=== PATIENT | female | born 1945 | race Caucasian/White ===

== ENCOUNTER → 2020-09-08 09:53 | Outpatient (BNVA) | payer MEDICARE, BC, SELFPAY | PROVIDERS: PCP Internal Medicine; Visit Provider Internal Medicine Gastroenterology | DX: R19.7 Diarrhea, unspecified (principal) | CPT/HCPCS: Q3014 ==

== ENCOUNTER 2020-09-14 15:46 | Outpatient (REF) | payer MEDICARE, SELFPAY ==
[2020-09-20 08:32] LABS: Fecal Fat Qualitative Normal (Normal)
[2020-09-21 17:52] LABS: Pancreatic Elastase-1 >500 mcg/g
== END 2020-09-14 15:47 | disposition home or self-care (01) ==
LOC: HO.LNP 15:46
PROVIDERS: Visit Provider Internal Medicine Gastroenterology
DX: R19.7 Diarrhea, unspecified (principal)
CPT/HCPCS: 82656; 82705; 87329

== ENCOUNTER → 2021-03-12 14:18 | Outpatient (BNVA) | payer MEDICARE, BC, SELFPAY | PROVIDERS: PCP Internal Medicine; Visit Provider Internal Medicine Gastroenterology | DX: Z13.89 Encounter for screening for other disorder (principal) | CPT/HCPCS: Q3014 ==

== ENCOUNTER 2023-02-03 14:59 | Outpatient (AMB) | payer BC, SELFPAY ==
--- NOTE | 2023-02-03 15:12 | MHC.OFFVIS ---
Intake Vital Signs 02/03/23 15:14 Height 5 ft 3 in Weight 220 lb BMI 39.0 BP 110/55 L Blood Pressure Location Lt brachial Position Sitting Pulse 69 Intake Visit Reasons: 6 month follow up Intake Note: Juliane presents in the office as a 6 month follow up. CC: Stomach ache today that comes and goes if she eats eats. Intellectual Property Counsel Required: No Allergies Milk Containing Products (Dairy) [Milk Containing Products] Allergy (Mild, Verified 02/03/23 15:15) Unknown wheat Allergy (Mild, Verified 02/03/23 15:15) Unknown aspirin Allergy (Unknown, Verified 02/03/23 15:15) Unknown caffeine Allergy (Unknown, Verified 02/03/23 15:15) unknown clarithromycin [Prevpac] Allergy (Unknown, Verified 02/03/23 15:15) unknown lansoprazole [Prevpac] Allergy (Unknown, Verified 02/03/23 15:15) unknown sertraline Allergy (Unknown, Verified 02/03/23 15:15) unknown HPI 6 month follow up HPI Details 77 y/o f w/ hx of hypothyroidism, depression, here?for f/u RECAP: ?Had admission w/ severe gastroenteritis and dehydration 09/2018, now much better ? her appetite is good ? she takes famotidine which helps her GERD ? 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 I refered her to immunology due to low IgM levels, also being cheked for allergies ? she was c/o loose to soft stools, sometimes hard to go ? she takes colestipol twice daily, given that due to bile acid gastritis which helps ? nausea is present, ? she has morning cramps in mid, lower abdo, usually relieved by passing stool sometimes 3 times in the morning ? she had ongoing social issues w/ daughter she was on chronic low dose amxoil for igM def, no approval from insurance company for IgM ? ? Colonoscopy 2016--hyperplastic polyp panc elastase--nml giardia nml ?? INTERIM: She has been well she is happy with colestipol appetite is too good ? weight is stable but trying to lose actively no blood in stool. she only needs zofran very rarely EXAM: GENERAL: The patient is well developed and nontoxic. VITAL SIGNS:see workflow HEENT: Nonicteric sclerae, PERRLA, EOMI. Oropharynx clear. Moist mucous membranes. Conjunctivae appear well perfused. No thyroid mass. CHEST: Chest wall is nontender. HEART: Regular rate and rhythm without murmurs. LUNGS: Clear to auscultation bilaterally. ABDOMEN: Soft, positive bowel sounds, nontender, no organomegaly.no flank tenderness SKIN: No rash, no excessive bruising, petechiae, or purpura. NEUROLOGIC: Cranial nerves II-XII intact without motor/sensory deficit. ? 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 2/ IgM defc PLAN: 1/ cont with colestipol, no major SE with it, will refill 2/ colonoscopy 2025 for screening 3/ get labs from PCP--had done and were normal per her apart from borderline GFR at 59 PFSH Surgical History H/O colonoscopy History of carpal tunnel surgery History of esophagogastroduodenoscopy (EGD) Hx of cholecystectomy Family History Daughter Diabetes HTN (hypertension) Mother Diabetes Cancer, face Father Cancer, face Social History Household Members: Children Alcohol intake: current Alcohol intake frequency: does not drink Physical Exam Vital Signs: Last Vital Signs Pulse 69 02/03/23 15:14 BP 110/55 L 02/03/23 15:14 BMI result Body Mass Index 39.0 Assessment & Plan Assessment & Plan (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
[2023-02-03 15:14] VITALS: BP 110/55; PULSE 69; BMI 39.0
== END 2023-02-03 15:41 | disposition home or self-care (01) ==
PROVIDERS: PCP Internal Medicine; Visit Provider Internal Medicine Gastroenterology
DX: K90.89 Other intestinal malabsorption (principal); R19.7 Diarrhea, unspecified
CPT/HCPCS: 99213

== ENCOUNTER → 2023-02-03 14:59 | Outpatient (BNVA) | payer BC, SELFPAY | PROVIDERS: PCP Internal Medicine; Visit Provider Internal Medicine Gastroenterology ==

== ENCOUNTER 2024-05-03 15:07 | Outpatient (AMB) | payer BC, SELFPAY ==
--- NOTE | 2024-05-03 15:09 | MHC.OFFVIS ---
Vital Signs 05/03/24 15:10 Height 5 ft 2 in Weight 222 lb 10.67 oz BMI 40.7 BP 114/59 L Blood Pressure Location Lt brachial Position Sitting Pulse 68 Intake Visit Reasons: 1 year follow up Intake Note: Juliane presents in the office as a 1 year follow up. CC: States that she gets a pinch in her epigastric region and reflux at times. [employer] Service Technician Required: No Allergies Milk Containing Products (Dairy) [Milk Containing Products] Allergy (Mild, Verified 05/03/24 15:11) Unknown wheat Allergy (Mild, Verified 05/03/24 15:11) Unknown aspirin Allergy (Unknown, Verified 05/03/24 15:11) Unknown caffeine Allergy (Unknown, Verified 05/03/24 15:11) unknown clarithromycin [Prevpac] Allergy (Unknown, Verified 05/03/24 15:11) unknown lansoprazole [Prevpac] Allergy (Unknown, Verified 05/03/24 15:11) unknown sertraline Allergy (Unknown, Verified 05/03/24 15:11) unknown HPI HPI 1 year follow up: Details: 78 y/o f w/ hx of hypothyroidism, depression, here for f/u RECAP: Had admission w/ severe gastroenteritis and dehydration 09/2018, now much better her appetite is good she takes famotidine which helps her GERD lorie also has lactose intolerance, 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, for which she takes and was helping before her gastroenteritis I refered her to immunology due to low IgM levels, also being cheked for allergies she was c/o loose to soft stools, sometimes hard to go she takes colestipol twice daily, given that due to bile acid gastritis which helps nausea is present, she has morning cramps in mid, lower abdo, usually relieved by passing stool sometimes 3 times in the morning she had ongoing social issues w/ daughter she was on chronic low dose amxoil for igM def, no approval from insurance company for IgM Colonoscopy 2015--hyperplastic polyp panc elastase--nml giardia nml INTERIM: she has periodic abdominal pain with gluten, avoiding it she is happy with colestipol as it still works well occ has a pinching sensation sometimes when eats, relieved by passing gas and anta acid son aged 55 earlier this year - ?[place], also her 2 best friends EXAM: GENERAL: The patient is well developed and nontoxic. VITAL SIGNS:see workflow HEENT: Nonicteric sclerae, PERRLA, EOMI. Oropharynx clear. Moist mucous membranes. Conjunctivae appear well perfused. No thyroid mass. CHEST: Chest wall is nontender. HEART: Regular rate and rhythm without murmurs. LUNGS: Clear to auscultation bilaterally. ABDOMEN: Soft, positive bowel sounds, nontender, no organomegaly.no flank tenderness SKIN: No rash, no excessive bruising, petechiae, or purpura. NEUROLOGIC: Cranial nerves II-XII intact without motor/sensory deficit. 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 3/ bloating and gluten intolerance PLAN: 1/ cont with colestipol, no major SE with it, will refill 2/ colonoscopy 2025 for screening 3/ get labs from PCP--refer renal for her CKD per her request 4/ trial of rifaximin and cont with probiotic PFSH Surgical History History of esophagogastroduodenoscopy (EGD) H/O colonoscopy Hx of cholecystectomy History of carpal tunnel surgery Family History Daughter Diabetes HTN (hypertension) Mother Diabetes Cancer, face Father Cancer, face Social History Household Members: Children Alcohol intake: current Alcohol intake frequency: does not drink Physical Exam Vital Signs: Last Vital Signs Pulse 68 05/03/24 15:10 BP 114/59 L 05/03/24 15:10 BMI result Body Mass Index 40.7 Assessment & Plan Assessment & Plan (1) CKD (chronic kidney disease): Code(s): N18.9 - Chronic kidney disease, unspecified Category: Medical Plan: see above Orders: Referrals Nephrology Referral N18.9 - Chronic kidney disease, unspecified Medications: New rifaximin 550 mg PO TID 2 weeks 42 tabs 0RF Coding Level of Care Code Est Pt Level 4 (53442) Diagnoses CKD (chronic kidney disease) N18.9
[2024-05-03 15:10] VITALS: BP 114/59; PULSE 68; BMI 40.7
== END 2024-05-03 15:34 | disposition home or self-care (01) ==
PROVIDERS: PCP Internal Medicine; Visit Provider Internal Medicine Gastroenterology
DX: N18.9 Chronic kidney disease, unspecified (principal)
CPT/HCPCS: 99214

== ENCOUNTER → 2024-05-03 15:07 | Outpatient (BNVA) | payer BC, SELFPAY | PROVIDERS: PCP Internal Medicine; Visit Provider Internal Medicine Gastroenterology ==

== ENCOUNTER 2024-06-17 14:39 | Outpatient (AMB) | payer BC, SELFPAY ==
--- NOTE | 2024-06-17 14:46 | HO.NEPHOV_ITS ---
Vital Signs 06/17/24 14:51 Height 5 ft 2 in Weight 228 lb 6 oz BMI 41.8 BP 108/68 Blood Pressure Location Lt brachial Position Sitting Pulse 72 Pulse Source Pulse Oximeter Pulse Oximetry (%) 95 Oxygen Delivery Method Room Air Intake Visit Reasons: INP: CKD-LVM Dynamite Packing Machine Feeder Required: No Accompanied by: Self / Same As Patient Allergies Milk Containing Products (Dairy) [Milk Containing Products] Allergy (Mild, Verified 06/17/24 14:51) Unknown wheat Allergy (Mild, Verified 06/17/24 14:51) Unknown aspirin Allergy (Unknown, Verified 06/17/24 14:51) Unknown caffeine Allergy (Unknown, Verified 06/17/24 14:51) unknown clarithromycin [Prevpac] Allergy (Unknown, Verified 06/17/24 14:51) unknown lansoprazole [Prevpac] Allergy (Unknown, Verified 06/17/24 14:51) unknown sertraline Allergy (Unknown, Verified 06/17/24 14:51) unknown HPI Comments Details: I had the privilege of seeing Juliane in consultation for low GFR. She is 79 years of age and has been in good health. She is not a diabetic or hypertensive. She takes Atenolol for palpitations. She has no history of proteinuria, retinopathy or LVH. She does not take nonsteroidal anti-inflammatories or PPI . She does not have any nausea, vomiting, diarrhea, shortness of breath, proximal nocturnal dyspnea, orthopnea, pedal edema, hematuria, renal stones, coronary artery disease, congestive heart failure, carotid stenosis, peripheral arterial disease, renal artery stenosis, new bone or back pain. She never had any history of high serum calcium. She denies any history of hepatitis or HIV. She does not get any recurrent sore throat, epistaxis, hemoptysis, photosensitivity, skin rashes. She has no sensorineural hearing deficits or microscopic hematuria. She has no acral tingling or paresthesia. She has masters significant weight over time. There were no new specific complaints at the time of this office visit [facility] Surgical History History of esophagogastroduodenoscopy (EGD) H/O colonoscopy Hx of cholecystectomy History of carpal tunnel surgery Family History Daughter Diabetes HTN (hypertension) Mother Diabetes Cancer, face Father Cancer, face Social History Household Members: Children Alcohol intake: current Alcohol intake frequency: does not drink Review of Systems Const All systems reviewed & are unremarkable except as noted in HPI and below Physical Exam Vital Signs: Last Vital Signs Pulse 72 06/17/24 14:51 BP 108/68 06/17/24 14:51 Pulse Ox 95 06/17/24 14:51 Oxygen Delivery Method Room Air 06/17/24 14:51 BMI result Body Mass Index 41.8 Const General: comfortable and no acute distress Orientation/consciousness: patient oriented x3 HEENT Head: Yes normocephalic Mouth: Normal oral and palatal mucosa present Eyes EOM: EOMs intact bilaterally Neck Neck: Yes supple Resp Auscultation: clear to auscultation bilaterally Cardio Jugular venous distension: no JVD Rate: regular rate GI Palpation (GI): Soft to palpation Auscultation: normal bowel sounds General: Yes no CVA tenderness Back/Spine/Pelvis Back: no CVA tenderness Skin General skin exam: no rashes or lesions noted Neuro General: patient oriented x3 and moves all extremities Extrem General: Yes no pedal edema Results Reviewed Nephrology Results: No Data to Display Assessment & Plan Assessment & Plan (1) CKD (chronic kidney disease) stage 2, GFR 60-89 ml/min: Code(s): N18.2 - Chronic kidney disease, stage 2 (mild) Category: Medical Plan Juliane has been mild rise in serum creatinine with mild drop in GFR over time due to unknown reason. Whether she had an ROSIBEL in the past with resultant drop in GFR need to be ascertained. I have ordered extensive workup including blood work and urine studies including cr cl as well as renal ultrasound. If she has lower GFR and a definite etiology has not been detected, she may need a renal biopsy. She avoids nonsteroidal anti-inflammatories and maintain good hydration which I encouraged. I did not make any medication changes today. All these possibilities have been discussed in detail and I answered all her questions. Follow-up appointment given Orders: Orders Anti DNA DS Antibody 4 Weeks N18.2 - Chronic kidney disease, stage 2 (mild) Proteinase 3 PR3 Antibodies 4 Weeks N18.2 - Chronic kidney disease, stage 2 (mild) Complement C4 4 Weeks N18.2 - Chronic kidney disease, stage 2 (mild) Phospholipase A2 Receptor Pnl 4 Weeks N18.2 - Chronic kidney disease, stage 2 (mild) Creatinine 4 Weeks N18.2 - Chronic kidney disease, stage 2 (mild) Creatinine Clearance Urine 24U 4 Weeks N18.2 - Chronic kidney disease, stage 2 (mild) Myeloperoxidase Antibody 4 Weeks N18.2 - Chronic kidney disease, stage 2 (mild) Anti Glomerular Basement Memb 4 Weeks N18.2 - Chronic kidney disease, stage 2 (mild) Complement C3 4 Weeks N18.2 - Chronic kidney disease, stage 2 (mild) Immunofixation Pnl, Serum 4 Weeks N18.2 - Chronic kidney disease, stage 2 (mild) Blood Urea Nitrogen 4 Weeks N18.2 - Chronic kidney disease, stage 2 (mild) Electrolytes 4 Weeks N18.2 - Chronic kidney disease, stage 2 (mild) Protein Creatinine Ratio, Ur 4 Weeks N18.2 - Chronic kidney disease, stage 2 (mild) US renal BI 4 Weeks N18.2 - Chronic kidney disease, stage 2 (mild) UA and rflx microscopic 4 Weeks N18.2 - Chronic kidney disease, stage 2 (mild) Coding Level of Care Code New Pt Level 4 (19472) Diagnoses CKD (chronic kidney disease) stage 2, GFR 60-89 ml/min N18.2
[2024-06-17 14:51] VITALS: BP 108/68; PULSE 72; O2SAT 95; BMI 41.8
== END 2024-06-17 15:28 | disposition home or self-care (01) ==
PROVIDERS: PCP Internal Medicine; Referring Provider Internal Medicine Gastroenterology; Visit Provider Internal Medicine Nephrology
DX: N18.2 Chronic kidney disease, stage 2 (mild) (principal)
CPT/HCPCS: 99204

== ENCOUNTER 2024-06-23 14:32 | Outpatient (REF) | payer MEDICARE, SELFPAY ==
[2024-06-23 16:02] LABS: Anion Gap 12 (12-20); Blood Urea Nitrogen 17 mg/dL (9-16); Carbon Dioxide 23 mmol/L (22-29); Chloride 108 mmol/L (96-108); Estimated Glomerular Filt Rate 57; Potassium 4.1 mmol/L (3.3-5.1); Sodium 139 mmol/L (135-145)
[2024-06-23 16:26] LABS: Creatinine, mg/dL 80.09
[2024-06-23 17:06] LABS: Creatinine, 24Hr Urine 1.7 G/Day (1.0-2.0); Total Volume 24 Hour Urine 2100 mL
[2024-06-23 17:07] LABS: Creatinine (CrCl) 0.94 mg/dL (0.5-1.4); Creatinine Clearance 124.2 mL/min (85-125)
[2024-06-25 11:24] LABS: Complement C3 145 mg/dL (83-193)
[2024-06-28 15:54] LABS: IgA 350 mg/dL (70-320); IgG 1138 mg/dL (600-1540); IgM 21 mg/dL (50-300)
[2024-06-28 16:38] LABS: Anti DNA DS Antibody 11 IU/mL; Anti Glomerular Basement Memb <1.0 AI; Myeloperoxidase Antibody <1.0 AI; Proteinase 3 PR3 Antibodies <1.0 AI
[2024-06-30 16:23] LABS: Phospholipase A2 IgG ELISA <4 RU/mL; Phospholipase A2 IgG IFA NEGATIVE (NEGATIVE)
== END 2024-06-23 14:33 | disposition home or self-care (01) ==
LOC: HO.LAB 14:32
PROVIDERS: PCP Student in an Organized Health Care Education/Training Program; Visit Provider Internal Medicine Nephrology
DX: N18.2 Chronic kidney disease, stage 2 (mild) (principal)
CPT/HCPCS: 36415; 80051; 82565; 82575; 82784; 83520; 84520; 86021; 86160; 86225; 86255; 86334

== ENCOUNTER 2024-06-24 16:12 | Outpatient (REF) | payer MEDICARE, SELFPAY ==
--- NOTE | ~2024-06-24 | US_ITS ---
CLINICAL HISTORY: N18.2 - Chronic kidney disease, stage 2 (mild) Renal ultrasound Comparison: None Findings: The kidneys are normal in echotexture bilaterally. The liver is increased in echogenicity which may indicate hepatic steatosis. No hydronephrosis. The right kidney is normal in size, measuring 10.4cm in length. The left kidney is normal in size, measuring 12.0cm in length. Impression: Unremarkable kidneys. This document has been electronically signed by: Korin Giron MD on 06/24/2024 16:59:54
== END 2024-06-24 16:13 | disposition home or self-care (01) ==
LOC: HO.US 16:12
PROVIDERS: Visit Provider Internal Medicine Nephrology
DX: N18.2 Chronic kidney disease, stage 2 (mild) (principal)
CPT/HCPCS: 76775

== ENCOUNTER → 2024-06-24 16:14 | Outpatient (BNV) | payer MEDICARE, SELFPAY | PROVIDERS: Visit Provider Radiology Diagnostic Radiology | DX: N18.2 Chronic kidney disease, stage 2 (mild) (principal) | CPT/HCPCS: 76775 ==

== ENCOUNTER 2024-07-29 15:01 | Outpatient (REF) | payer MEDICARE, SELFPAY ==
--- OUTSIDE RECORDS SUMMARY | 2024-07-29 15:36 | XMS_ITS | Clinical Summary ---
Author Organization [facility] Address [address] [place] [address] Care Team Providers Care Hardboard Press Operator Name Role Phone Madeline Majano MD Primary Care Provider [phone] Allergies Active Allergy Reactions Criticality Noted Date [...] Date Site/Laterality Comments CARPAL TUNNEL RELEASE PROCEDURE: AR NEUROPLASTY &/TRANSPOS MEDIAN NRV CARPAL TUNNE; COMMENT: Kj everett OTHER SURGICAL HISTORY 03/20 PROCEDURE: MAMMOGRAM; COMMENT: neg TONSILLECTOMY ADENOIDECTOMY, BILATERAL MYRINGOTOMY AND TUBES PROCEDURE: AR TONSILLECTOMY & ADENOIDECTOMY <AGE 12 CARDIOVASCULAR STRESS TEST 09/17 PROCEDURE: AR CV STRS TST XERS&/OR RX CONT ECG W/O I&R; COMMENT: neg ESOPHAGOGASTRODUODENOSCOPY 12/02/07 PROCEDURE: AR EGD TRANSORAL BIOPSY SINGLE/MULTIPLE; COMMENT: Moderate antral gastritis-bx:Chronic gastritis with lymphoid nodules, esophagus nl, stomach nl. CHOLECYSTECTOMY 06/22 PROCEDURE: HISTORICAL CHOLECYSTECTOMY; COMMENT: [place] COLONOSCOPY 02/15 PROCEDURE: AR COLONOSCOPY STOMA DX INCLUDING COLLJ SPEC SPX; COMMENT: Mumtaz FELDER; int hem COLONOSCOPY 08/10/12 PROCEDURE: AR COLONOSCOPY STOMA W/RMVL ISSAC POLYP/OTH LES SNARE; COMMENT: adenoma; repeat in 3 yrs COLONOSCOPY W/ BIOPSIES 08/10/15 [facility] PROCEDURE: AR COLONOSCOPY W/BIOPSY SINGLE/MULTIPLE; COMMENT: hyperplastic polyp, tics and hemorrhoids; repeat in 5 yrs CHOLECYSTECTOMY PROCEDURE: AR LAPAROSCOPY SURG CHOLECYSTECTOMY Medical History Medical History [...] AM EDT Office Visit Internal Medicine - [address] [place] [phone] Madeline Majano MD [address] [place] [id number] 04/04/2025 3:30 PM EDT Appointment Radiology Department - [address] [phone] Health Maintenance Due Date Last Done Comments [...] Results * Falls Risk Assessment (01/21/2024) Pathologist [facility] Falls Risk Assessment Abstracted Historical Provider HEALTH MAINTENANCE Final Result * Depression Screening (01/21/2024) Pathologist [facility] Depression Screening Abstracted [facility] Provider HEALTH MAINTENANCE Final Result * (ABNORMAL) Lipid panel (01/21/2024) [facility] LDL/HDL Ratio 3 0 - 4 Triglycerides 167(A) 0 - 150 mg/dL Cholesterol 156 0 - 200 mg/dL HDL 61 >=40 mg/dL LDL Cholesterol 62 0 - 100 mg/dL Blood Venous blood specimen / Unknown [facility] Provider LAB BLOOD ORDERABLES Violette l [...] classified as having normal bone density. The [facility] Department of Internal Medicine recommends [...] beclassified as having normal bone density. The [facility] Department of Internal Medicine recommendsusing [...] Resul t * Hepatitis C Screening (05/01/2016) [facility] Hepatitis C Screening Abstracted [facility] Provider HEALTH MAINTENANCE Final Result * Colonoscopy (08/10/2015) [facility] Colonoscopy No interpreta tion,abstr acted Anatomical Region Laterality Modality Other Historical Provider HEALTH MAINTENANCE Final Result from Last 3 Months or Most Recently Relevant to Health Maintenance Care Teams Hardboard Press Operator Relationship Specialty Start Date End Date Madeline Majano MD [address] [place] [address] PCP - General 05/28/22
== END 2024-07-29 15:02 | disposition home or self-care (01) ==
LOC: HO.HKASLDS 15:01
PROVIDERS: Visit Provider Internal Medicine Nephrology
DX: I10 Essential (primary) hypertension (principal)
CPT/HCPCS: 99212

== ENCOUNTER 2024-07-29 15:01 | Outpatient (AMB) | payer MEDICARE, SELFPAY ==
--- NOTE | 2024-07-29 15:04 | HO.NEPHOV_ITS ---
Vital Signs 07/29/24 15:05 Height 5 ft 2 in Weight 227 lb 4 oz BMI 41.6 BP 110/60 Blood Pressure Location Lt brachial Position Sitting Pulse 76 Pulse Source Pulse Oximeter Pulse Oximetry (%) 96 Oxygen Delivery Method Room Air Intake Visit Reasons: 6 wks f/u/ Conf Auto Transmission Specialist Required: No Accompanied by: Self / Same As Patient Allergies Milk Containing Products (Dairy) [Milk Containing Products] Allergy (Mild, Verified 07/29/24 15:04) Unknown wheat Allergy (Mild, Verified 07/29/24 15:04) Unknown aspirin Allergy (Unknown, Verified 07/29/24 15:04) Unknown caffeine Allergy (Unknown, Verified 07/29/24 15:) unknown clarithromycin [Prevpac] Allergy (Unknown, Verified 07/29/24:) unknown lansoprazole [Prevpac] Allergy (Unknown, Verified 07/29/24 15:) unknown sertraline Allergy (Unknown, Verified 07/29/24 15:) unknown HPI Comments Details: Juliane was seen for questionable low GFR. She is 79 years of age and has been in good health. She is not a diabetic or hypertensive. She takes Atenolol for palpitations. She has no history of proteinuria, retinopathy or LVH. She does not take nonsteroidal anti-inflammatories or PPI . She does not have any nausea, vomiting, diarrhea, shortness of breath, proximal nocturnal dyspnea, orthopnea, pedal edema, hematuria, renal stones, coronary artery disease, congestive heart failure, carotid stenosis, peripheral arterial disease, renal artery stenosis, new bone or back pain. She never had any history of high serum calcium. She denies any history of hepatitis or HIV. She does not get any recurrent sore throat, epistaxis, hemoptysis, photosensitivity, skin rashes. She has no sensorineural hearing deficits or microscopic hematuria. She has no acral tingling or paresthesia. There were no new specific complaints at the time of this office visit [facility] Surgical History History of esophagogastroduodenoscopy (EGD) H/O colonoscopy Hx of cholecystectomy History of carpal tunnel surgery Family History Daughter Diabetes HTN (hypertension) Mother Diabetes Cancer, face Father Cancer, face Social History Household Members: Children Alcohol intake: current Alcohol intake frequency: does not drink Review of Systems Const All systems reviewed & are unremarkable except as noted in HPI and below Physical Exam Vital Signs: Last Vital Signs Pulse 76 07/29/24 15:05 BP 110/60 07/29/24 15:05 Pulse Ox 96 07/29/24 15:05 Oxygen Delivery Method Room Air 07/29/24 15:05 BMI result Body Mass Index 41.6 Const General: comfortable and no acute distress Orientation/consciousness: patient oriented x3 HEENT Head: Yes normocephalic Mouth: Normal oral and palatal mucosa present Eyes EOM: EOMs intact bilaterally Neck Neck: Yes supple Resp Auscultation: clear to auscultation bilaterally Cardio Jugular venous distension: no JVD Rate: regular rate GI Palpation (GI): Soft to palpation Auscultation: normal bowel sounds General: Yes no CVA tenderness Back/Spine/Pelvis Back: no CVA tenderness Skin General skin exam: no rashes or lesions noted Neuro General: patient oriented x3 and moves all extremities Extrem General: Yes no pedal edema Results Reviewed Nephrology Results: Sodium 139 mmol/L (135-145) 06/23/24 Potassium 4.1 mmol/L (3.3-5.1) 06/23/24 Chloride 108 mmol/L (96-108) 06/23/24 Carbon Dioxide 23 mmol/L (22-29) 06/23/24 BUN 17 mg/dL (9-16) H 06/23/24 Creatinine 0.94 mg/dL (0.5-1.4) 06/23/24 Renal US 06/24/24 Assessment & Plan Assessment & Plan (1) Hypertension: Code(s): I10 - Essential (primary) hypertension Category: Medical Qualifiers: Hypertension type: primary hypertension Qualified Code(s): I10 - Essential (primary) hypertension Plan Juliane has been mild rise in serum creatinine with mild drop in GFR over time due to unknown reason. Whether she had an ROSIBEL in the past with resultant drop in GFR need to be ascertained. Extensive workup including blood work and urine studies was negative. Her cr cl as well as renal ultrasound are normal. she does not need a renal biopsy now. She avoids nonsteroidal anti-inflammatories and maintain good hydration which I encouraged. I did not make any medication changes today. All these possibilities have been discussed in detail and I answered all her questions. Follow-up appointment given Orders: Orders Creatinine Clearance Urine 24U 1 Year I10 - Essential (primary) hypertension Creatinine 1 Year I10 - Essential (primary) hypertension Electrolytes 1 Year I10 - Essential (primary) hypertension Blood Urea Nitrogen 1 Year I10 - Essential (primary) hypertension Coding Level of Care Code Est Pt Level 4 (41382) Diagnoses Primary hypertension I10 Hypertension type: primary hypertension
[2024-07-29 15:05] VITALS: BP 110/60; PULSE 76; O2SAT 96; BMI 41.6
--- OUTSIDE RECORDS SUMMARY | 2024-07-29 15:06 | XMS_ITS | Encounter Summary ---
Author Organization [facility] Address [address] [place] [address] Care Team Providers Care Chemical Tank Worker Name Role Phone Neida Waite MD Primary Care Provider U Kenneth Chandra MD Unavailable [phone] Sis Matta PA-C Unavailable Unavailab Madeline Hubbard MD Primary Care Provider [phone] Encounter Details Date Type Department Care Team Description 10/27/2020 Pt. Non Urgent Medical Question Adult Medicine B - [address] [place] [address] Neida Waite MD GERD (gastroesophageal reflux disease) Social History Tobacco Use Types Packs/Day Years Used Date Smoking Tobacco: Never Smokeless Tobacco: Never Comments:TERRIE STATES SHE WAS NEVER A SMOKER Alcohol Use Standard Drinks/Week Comments Yes 0 (1 standard drink = 0.6 oz pur e alcohol) rare Alcohol Habits Answer Date Recorded How often do you have a drink containing alcohol ? Never 11/21/2021 How many drinks containing a lcohol do you have on a typical day when you are drinking? Not asked How often do you have six or more drinks on one occasion? Never 11/21/2021 Social Isolation Answer Date Recorded In a typical week, how many times do you talk on the phone with family, friends, or neighbors? More than three times a week 11/21/2021 How often do you get togethe r with friends or relatives? Three times a week 11/21/2021 How often do you attend chur ch or alevism services? More than 4 times per year 11/21/2021 Do you belong to any clubs o r organizations such as mosque groups, unions, fraternal or athletic groups, or school groups? Yes 11/21/2021 How often do you attend meet ings of the clubs or organizations you belong to? More than 4 times per year 11/21/2021 Are you now , , , , never or living with a partner? 11/21/2021 Physical Activity Answer Date Recorded On average, how many days pe r week do you engage in moderate to strenuous exercise (like walking fast, running, jogging, dancing, swimming, biking, or other activities that cause a light or heavy sweat)? 7 days 11/21/2021 On average, how many minutes do you engage in exercise at this level? 30 min 11/21/2021 Stress Answer Date Recorded Do you feel stress - tense, restless, nervous, or anxious, or unable to sleep at night because your mind is troubled all the time - these days? Rather much 11/21/2021 Financial Resource Strain Answer Date R ecorded How hard is it for you to pa y for the very basics like food, housing, medical care, and heating? Not hard at all 11/21/2021 Intimate Partner Violence Answer Date R ecorded Within the last year, have y ou been afraid of your partner or ex-partner? No 11/21/2021 Within the last year, have y ou been humiliated or emotionally abused in other ways by your partner or ex-partner? No Within the last year, have y ou been kicked, hit, slapped, or otherwise physically hurt by your partner or ex-partner? No 11/21/2021 Within the last year, have y ou been raped or forced to have any kind of sexual activity by your partner or ex-partner? No 11/21/2021 Food Insecurity Answer Date Recorded Within the past 12 months, y ou worried that your food would run out before you got money to buy more. Never true 11/21/2021 Within the past 12 months, t he food you bought just didn't last and you didn't have money to get more. Never true 11/21/2021 Transportation Needs Answer Date Record ed In the past 12 months, has l ack of transportation kept you from medical appointments or from getting medications? No 01/2022 In the past 12 months, has l ack of transportation kept you from meetings, work, or getting things needed for daily living? No 11/21/2021 Housing Stability Answer Date Recorded In the last 12 months, was t here a time when you were not able to pay the mortgage or rent on time? No 11/21/2021 In the last 12 months, how many places have you lived? 1 11/21/2021 In the last 12 months, was t here a time when you did not have a steady place to sleep or slept in a senior care (including now)? No 11/21/2021 Sex Assigned at Date Recorded Not on file Job Start Date Occupation Industry Not on file Not on file Not on file documented as of this encounter Miscellaneous Notes * Telephone Encounter - Miriam Coyne PA-C - 10/27/2020 5:06 PM EDT Approved * Telephone Encounter - Lauren Miller M.A. - 10/27/2020 4:18 PM EDTFrom: Terrie David To: Gabrielle Ulloa Sent: 10/27/2020 4:11 PM EDT Subject: Correct address for prescriptions..[facility]!! This message is for the entire office..I have [facility] since June 16, 2020....NOT [facility]!!! PLEASE DO NOT SEND ANY REFULLS TO [facility]...I HAVE [facility].....I don't know why your meds dept. Has switched me back to [facility] [facility]..I am NO LONGER COVERED BY [facility]. THANK YOU!!!PLEASE SEND ALL FUTURE PRESCRIPTIONS TO [facility] ONLY!! documented in this encounter Plan of Treatment Not on file documented as of this encounter Visit Diagnoses Diagnosis GERD (gastroesophageal reflux disease) Esophageal reflux documented in this encounter Care Teams Chemical Tank Worker Relationship Specialty Start Date End Date Neida Waite MD PCP - General Internal Medicine 03/18/1705/16 Madeline Majano MD [address] [place] [address] PCP - General Internal Medicine 05/28/22 Kenneth Pickett MD [address] [place] [address] Specialist Cardiovascular Disease 09/02/20 Sis Matta PA-C [address] [place] [address] Cardiology 09/02/20 documented as of this encounter
--- OUTSIDE RECORDS SUMMARY | 2024-07-29 15:06 | XMS_ITS | Encounter Summary ---
Author Organization [facility] Address [address] [place] [address] Care Team Providers Care Marine Equipment Preservation Inspector Name Role Phone Neida Waite MD Primary Care Provider U Kenneth Chandra MD Unavailable [phone] Sis Matta PA-C Unavailable Unavailab Madeline Hubbard MD Primary Care Provider [phone] Reason for Visit * Reason Onset Date Comments refill request 06/24/2018 Encounter Details Date Type Department Care Team Description 06/24/2018 Refill Adult Medicine [facility] [address] [place] [address] Neida Waite MD refill request Social History Tobacco Use Types Packs/Day Years [...] often do you attend chur ch or hinduism services? More than 4 times per year 11/21/2021 Do you belong to any clubs o r organizations such as yarsanism groups, unions, fraternal or athletic groups, or [...] to sleep or slept in a senior living (including now)? No 11/21/2021 Sex Assigned at Date Recorded Not on file Job Start Date Occupation Industry Not on file Not on file Not on file documented as of this encounter Miscellaneous Notes * Telephone Encounter - Neida Ulloa MD - 06/24/2018 11:45 AM EST Signed, thank you * Telephone Encounter - Carolina Barnett - 06/24/2018 9:44 AM EST Last office visit: 06.23.2018 Lab Results Component Value Date TSH 0.48 04/01/2017 * Telephone Encounter - Charley Dominguez - 06/24/2018 8:49 AM EST Patient would like script to be: E-PRESCRIBED/FAXED TO PHARMACY ?? WHEN WAS THE PATIENT'S LAST APPOINTMENT IN ADULT MEDICINE? 06.23.18 ?? WHEN WAS THE LAST TIME THE PATIENT SAW THEIR PCP? Never seen Neida Ulloa ?? Does patient have an upcoming appointment? No ?? (THE MEDICATION REQUESTED IS ON THE MED LIST ABOVE) All of the medications requested were on the CURRENT MEDS list ?? Did you check the Pharmacy information above?: YES ?? Patient wants: 30 -day supply ?? Is this a mail order prescription request ? YES ?? If the refill is from a FAXED refill request what is the RX # listed on the fax? N/A ?? Patients current insurance carrier is: [place] / Plan: [place] / Product Type: MEDICARE [id number] ? documented in this encounter Plan of Treatment Not on file documented as of this encounter Visit Diagnoses Not on filedocumented in this encounter Care Teams Marine Equipment Preservation Inspector Relationship Specialty Start Date End Date Neida Waite MD PCP - General Internal Medicine 03/18/1705/16 Madeline Majano MD [address] [address] PCP - General Internal Medicine 05/28/22 Kenneth Pickett MD [address] [facility] [address] [place] [address] Specialist Cardiovascular Disease 09/02/20 Sis Matta PA-C [address] [facility] [address] [place] [address] Cardiology 09/02/20 documented as of this encounter
--- OUTSIDE RECORDS SUMMARY | 2024-07-29 15:06 | XMS_ITS | Encounter Summary ---
Author Organization [facility] Address [address] [place] [address] Care Team Providers Care Data Review Specialist Name Role Phone John Paul Huber MD Primary Care Provider Unavail able Neida Waite MD Primary Care Provider U Neida Gomez MD Primary Care Provider U Kenneth Chandra MD Unavailable Sis Matta PA-C Unavailable Unavailab Madeline Hubbard MD Primary Care Provider [phone] Reason for Visit * Reason Onset Date Comments palpitations 11/23/2013 per [facility] appo intment Encounter Details Date Type Department Care Team Description 11/23/[address] [facility] [address] [place] [address] John Paul Huber MD [facility]ations [facility] Social History Tobacco Use Types Packs/Day Years [...] week 11/21/2021 How often do you attend [facility] or mandaeism services? More than 4 times per year 11/21/2021 Do you belong to any clubs o r organizations such as buddhism groups, unions, fraternal or athletic groups, or [...] place to sleep or slept in a longterm (including now)? No 11/21/2021 Sex Assigned at Date Recorded Not on file Job Start Date Occupation Industry Not on file Not on file Not on file documented as of this encounter Miscellaneous Notes * Telephone Encounter - Marjan Garay L.P.N. - 11/24/2013 2:11 PM EDT Patient was told that labs would be ordered when he sees her at her physical but she is calling again asking for these tests to be ordered. The lab said they can add this to the blood drawn this morning if you agree. LABS PENDED FROM YESTERDAY. * Telephone Encounter - Adele Contreras M.A. - 11/23/2013 5:02 PM EDT Informed pt of message below. * Telephone Encounter - John Paul Huber MD - 11/23/2013 4:44 PM EDT I will order tests as needed when I see her * Telephone Encounter - Ramona Saldivar L.P.N. - 11/23/2013 4:19 PM EDT Spoke with pt About pe appt she made States she is having heart palpitations intermittently When she takes an ativan they go away States she is very anxious Has been to er several times for this Had further work up with cardiology Which was all negative Pt has appt for tomorrow for this And pe on 12/07 She wanted to come in to office for this problem Would like blood work done * Telephone Encounter - Wale Flynn - 11/23/2013 3:53 PM EDT Pt made [employer] appointment for below. Please triage if warrants From Terrie Velázquez To Patient Appointment Schedule Request Mailing List [P [id number]] Composed 11/23/2013 12:04 PM For Delivery On 11/23/2013 12:04 PM Subject Appointment scheduled from [facility] Message Type Patient Appointment Schedule Request Read Status Y Message Body Appointment For: TERRIE VELÁZQUEZ ([id number]) Visit Type: PHYSICAL (503) 12/07/2013 2:15 PM 30 mins. John Paul Huber MD [facility] Patient Comments: Annual Physical Annual physical exam, plus other problems, heart palpitations,, toe pain, ear problems, monitor thyroid and cholesterol, etc. documented in this encounter Plan of Treatment Not on file documented as of this encounter Results * (ABNORMAL) LIPID PROFILE (11/24/2013 2:32 PM EDT) [facility] Cholesterol 208(H) 0 - 200 mg/dL 11/24/2013 6:05 PM EDT [facility] TRIGLYCERIDES 135 0 - 150 mg/dL 11/24/2013 6:05 PM EDT [facility] HDL CHOLESTEROL 58 >40 mg/dL 4 6:05 PM EDT [facility] LDL CALCULATED 123(H) 0 - 100 mg/dL 11/24/2013 6:05 PM [facility] TC-HDLC RATIO 4 0.0 - 4.4 mg/dL 11/24/2013 6:05 PM [facility] 11/24/2013 2:32 PM EDT 11/24/2013 2:32 PM EDT John Paul Huber MD LAB Performing Organization Address City/State/[facility] Co de Phone Number [facility] [address] [facility] * COMPREHENSIVE METABOLIC PANEL (11/24/2013 2:32 PM EDT) [facility] GLUCOSE 90 70 - 100 mg/dL 11/24/2013 6:05 PM [facility] Comment: Reference range applicable to fasting specimens only Based on recommendations from the ADA and AACE, the fasting glucose reference range has been changed to 70-100 mg/dL. ??This change is effective October 30, 2009 BUN 14 5 - 25 mg/dL 11/24/2013 6:05 PM [facility] CREAT 0.9 0.7 - 1.5 mg/dL 11/24/2013 6:05 PM [facility] BUN/CREAT RATIO 15.6 6.0 - 20.0 11/24/2013 6:05 PM [facility] GFR > 60 >60 11/24/2013 6:05 PM [facility] Comment: If patient is -[place], multiply result by 1.21 Chronic Kidney Disease: < 60 ml/min/1.73 square meters Kidney Failure: < 15 ml/min/1.73 square meters Sodium 141 133 - 145 mEq/L 11/24/2013 6:05 PM [facility] Potassium 4.2 3.5 - 5.2 mEq/L 11/24/2013 6:05 PM [facility] Chloride 102 96 - 108 mEq/L 11/24/2013 6:05 PM [facility] CO2 24.5 21.0 - 32.0 mEq/L 11/24/2013 6:05 PM EDT [facility] CALCIUM 10.1 8.5 - 10.5 mg/dL 11/24/2013 6:05 PM EDT [facility] TOTAL PROTEIN 7.6 6.0 - 8.3 gm/dL 11/24/2013 6:05 PM EDT [facility] Albumin 4.6 3.2 - 5.6 gm/dL 11/24/2013 6:05 PM EDT [facility] GLOBULIN 3.0 1.9 - 4.4 gm/dL 11/24/2013 6:05 PM EDT [facility] A/G RATIO 1.5 1.1 - 2.3 11/24/2013 6:05 PM EDT [facility] BILI,TOTAL 0.6 0.0 - 1.2 mg/dL 11/24/2013 6:05 PM EDT [facility] AST (SGOT) 22 10 - 42 U/L 11/24/2013 6:05 PM EDT [facility] ALT( SGPT) 26 10 - 60 U/L 11/24/2013 6:05 PM EDT [facility] ALK PHOS 58 42 - 121 U/L 11/24/2013 6:05 PM EDT [facility] 11/24/2013 2:32 PM EDT 11/24/2013 2:32 PM EDT John Paul Huber MD LAB Performing Organization Address [facility]/ZIP Co de Phone Number [facility] [address] [facility] * TSH (11/24/2013 2:32 PM EDT) TSH 2.60 0.40 - 4.00 mIU/ml 11/24/2013 6:05 PM EDT [facility] 11/24/2013 2:32 PM EDT 11/24/2013 2:32 PM EDT John Paul Huber MD LAB Performing Organization Address [facility]/ZIP Co de Phone Number [facility] [address] [facility] documented in this encounter Visit Diagnoses Diagnosis HYPERLIPIDEMIA Other and unspecified hyperlipidemia HYPOTHYROIDISM Unspecified hypothyroidism documented in this encounter Care Teams Data Review Specialist Relationship Specialty Start Date End Date John Paul Huber MD PCP - General 06/18/01 04/13/14 Neida Waite MD PCP - General Internal Medicine 03/18/1705/16 Neida Waite MD PCP - General 04/14/14 7 Madeline Majano MD [address] [place] [address] PCP - General Internal Medicine 05/28/22 Kenneth Pickett MD [address] [place] [address] Specialist Cardiovascular Disease 09/02/20 Sis Matta PA-C [address] [place] [address] Cardiology 09/02/20 documented as of this encounter
--- OUTSIDE RECORDS SUMMARY | 2024-07-29 15:06 | XMS_ITS | Encounter Summary ---
Author Organization [facility] Address [address] [place] [address] Care Team Providers Care Bariatric Program Coordinator Name Role Phone Neida Waite MD Primary Care Provider U Kenneth Chandra MD Unavailable Sis Matta PA-C Unavailable Unavailab Madeline Hubbard MD Primary Care Provider [phone] Reason for Visit * Reason Onset Date Comments APPOINTMENT 01/03/2022 Follow up Encounter Details Date Type Department Care Team Description 01/03/2022 Telephone Cardio PVC POC [address] [facility] [address] [place], [place] [id number] Kenneth Pickett MD [address] [place], [place] [id number] APPOINTMENT (Follow up) Social History Tobacco Use Types Packs/Day Years [...] 11/21/2021 How often do you attend chur or muslim services? More than 4 times per year 11/21/2021 Do you belong to any clubs o r organizations such as holiness groups, unions, fraternal or athletic groups, or [...] file Not on file Not on file COVID-19 Exposure Response Date Recorded In the last 10 days, have yo u been in contact with someone who was confirmed or suspected to have Coronavirus/COVID-19? No / Unsure 12/05/2021 1:58 PM EDT documented as of this encounter Miscellaneous Notes * Telephone Encounter - John Snow - 01/03/2022 7:06 PM EDT Called patient, [email or web address] please schedule follow up with Dr. Pickett when patient calls back. documented in this encounter Plan of Treatment Not on file documented as of this encounter Visit Diagnoses Not on filedocumented in this encounter Care Teams Bariatric Program Coordinator Relationship Specialty Start Date End Date Neida Waite MD PCP - General Internal Medicine 03/18/1705/16 Madeline Majano MD [address] [place] [address] PCP - General Internal Medicine 05/28/22 Kenneth Pickett MD [address] [address] Specialist Cardiovascular Disease 09/02/20 Sis Matta PA-C [address] [address] Cardiology 09/02/20 documented as of this encounter
--- OUTSIDE RECORDS SUMMARY | 2024-07-29 15:06 | XMS_ITS | Encounter Summary ---
Author Organization [facility] Address [address] [place] [address] Care Team Providers Care Senior Care Provider Name Role Phone Neida Waite MD Primary Care Provider U Kenneth Chandra MD Unavailable [phone] Sis Matta PA-C Unavailable Unavailab Madeline Hubbard MD Primary Care Provider [phone] Encounter Details Date Type Department Care Team Description 10/27/2020 Pt. Non Urgent Medical Question Adult Medicine [facility] [address] [place] [address] Neida Waite MD Social History Tobacco Use Types Packs/Day Years [...] week 11/21/2021 How often do you attend [facility] or nondenominational services? More than 4 times per year 11/21/2021 Do you belong to any clubs o r organizations such as alevism groups, unions, fraternal or athletic groups, or [...] place to sleep or slept in a halfway (including now)? No 11/21/2021 Sex Assigned at Date Recorded Not on file Job Start Date Occupation Industry Not on file Not on file Not on file documented as of this encounter Miscellaneous Notes * Telephone Encounter - Miriam Coyne PA-C - 10/27/2020 5:06 PM EDT Approved * Telephone Encounter - Lauren Miller M.A. - 10/27/2020 4:38 PM EDTFrom: Terrie David To: Gabrielle Ulloa Sent: 10/27/2020 4:33 PM EDT Subject: Atenolol that you refilled for me is for 30 days only, with several refills...a 90 day supply is the same ashley for 30 days, separate 30 days cost more..thanks for future prescriptions. Message is above..thanks. documented in this encounter Plan of Treatment Not on file documented as of this encounter Visit Diagnoses Not on filedocumented in this encounter Care Teams Senior Care Provider Relationship Specialty Start Date End Date Neida Waite MD PCP - General Internal Medicine 03/18/1705/16 Madeline Majano MD [address] [place] [address] PCP - General Internal Medicine 05/28/22 Kenneth Pickett MD [address] [place] [address] Specialist Cardiovascular Disease 09/02/20 Sis Matta PA-C [address] [place] [address] Cardiology 09/02/20 documented as of this encounter
--- OUTSIDE RECORDS SUMMARY | 2024-07-29 15:06 | XMS_ITS | Encounter Summary ---
Author Organization [facility] Address [address] [place] [address] Care Team Providers Care Stemhole Borer And Topper Name Role Phone Neida Waite MD Primary Care Provider U Kenneth Cahndra MD Unavailable [phone] Sis Matta PA-C Unavailable Unavailab Madeline Hubbard MD Primary Care Provider [phone] Reason for Visit * Reason Comments E-prescribe Rx Request Encounter Details Date Type Department Care Team Description 12/15/2020 Refill Adult Medicine [address] [address] Char Mendes PA-C E-prescribe Rx Request Social History Tobacco Use Types Packs/Day Years [...] How often do you attend chur or scientology services? More than 4 times per year [...] place to sleep or slept in a group home (including now)? No 11/21/2021 Sex Assigned at Date Recorded Not on file Job Start Date Occupation Industry Not on file Not on file Not on file documented as of this encounter Miscellaneous Notes * Telephone Encounter - Kelsie Encinas M.A. - 12/15/2020 2:35 PM EDT Left a message to call back. Please put call to [phone] or remessage to a-pool * Telephone Encounter - Neida Ulloa MD - 12/15/2020 2:22 PM EDT Needs appointment * Telephone Encounter - Alka Barlow M.A. - 12/15/2020 10:19 AM EDT Last office visit: 04.04.20 Lab Results Component Value Date TSH 0.41 12/03/2019 * Telephone Encounter - Subha Deng - 12/15/2020 9:15 AM EDT Patient would like script to be: E-PRESCRIBED/FAXED TO PHARMACY WHEN WAS THE PATIENT'S LAST APPOINTMENT IN ADULT MEDICINE? 04/04/20 WHEN WAS THE LAST TIME THE PATIENT SAW THEIR PCP? Same as above Does patient have an upcoming appointment? Patient was sent a My Chart request to set up an appointment as they are due. (THE MEDICATION REQUESTED IS ON THE MED LIST ABOVE) All of the medications requested were on the CURRENT MEDS list Did you check the Pharmacy information above?: YES Patient wants: 90 -day supply Is this a mail order prescription request ? YES If the refill is from a FAXED refill request what is the RX # listed on the fax? N/A Patients current insurance carrier is: Payor: [employer] / Plan: PPO $10 [place] [id number] / ProductType: PPO [id number] documented in this encounter Plan of Treatment Not on file documented as of this encounter Visit Diagnoses Not on filedocumented in this encounter Care Teams Stemhole Borer And Topper Relationship Specialty Start Date End Date Neida Waite MD PCP - General Internal Medicine 03/18/1705/16 Madeline Majano MD [address] [place] [address] PCP - General Internal Medicine 05/28/22 Kenneth Pickett MD [address] [place] [address] Specialist Cardiovascular Disease 09/02/20 Sis Matta PA-C [address] [place] [address] Cardiology 09/02/20 documented as of this encounter
--- OUTSIDE RECORDS SUMMARY | 2024-07-29 15:06 | XMS_ITS | Encounter Summary ---
Author Organization [facility] Address [address] [place] [address] Care Team Providers Care Tape Sewing Machine Operator Name Role Phone Neida Waite MD Primary Care Provider U Kenneth Chandra MD Unavailable [phone] Sis Matta PA-C Unavailable Unavailab Madeline Hubbard MD Primary Care Provider [phone] Reason for Visit * Reason Onset Date Comments refill request 10/27/2020 Encounter Details Date Type Department Care Team Description 10/27/2020 Refill Adult Medicine [facility] [address] [place] [address] Elaine Hills PA-C [address] [place] [address] refill request Social History Tobacco Use Types [...] How often do you attend chur or shinto services? More than 4 times per year 11/21/2021 Do you belong to any clubs o r organizations such as evangelical groups, unions, fraternal or athletic groups, or [...] place to sleep or slept in a care home (including now)? No 11/21/2021 Sex Assigned at Date Recorded Not on file Job Start Date Occupation Industry Not on file Not on file Not on file documented as of this encounter Miscellaneous Notes * Telephone Encounter - Rita Connolly M.A. - 10/27/2020 4:22 PM EDT Date of last office visit was 04/04/20 Lab Results Component Value Date NA 139 12/03/2019 K 4.4 12/03/2019 CO2 27 12/03/2019 CL 105 12/03/2019 BUN 14 12/03/2019 CREAT 0.88 12/03/2019 GLU 73 12/03/2019 CA 9.6 12/03/2019 GFR > 60 12/03/2019 documented in this encounter Plan of Treatment Not on file documented as of this encounter Visit Diagnoses Diagnosis GERD (gastroesophageal reflux disease) Esophageal reflux documented in this encounter Care Teams Tape Sewing Machine Operator Relationship Specialty Start Date End Date Neida Waite MD PCP - General Internal Medicine 03/18/1705/16 Madeline Majano MD [address] [place] [address] PCP - General Internal Medicine 05/28/22 Kenneth Pickett MD [address] [place] [address] Specialist Cardiovascular Disease 09/02/20 Sis Matta PA-C [address] [facility] [address] [place] [address] Cardiology 09/02/20 documented as of this encounter
--- OUTSIDE RECORDS SUMMARY | 2024-07-29 15:06 | XMS_ITS | Encounter Summary ---
Author Organization [facility] Address [address] [place] [address] Care Team Providers Care Over The Horizon Targeting Supervisor Name Role Phone Neida Waite MD Primary Care Provider U Kenneth Chandra MD Unavailable Sis Matta PA-C Unavailable Unavailab Madeline Hubbard MD Primary Care Provider [phone] Reason for Visit * Reason Onset Date Comments medication problems 06/30/2018 Encounter Details Date Type Department Care Team Description 06/30/2018 Telephone Adult Medicine [facility] [address] [place] [address] Neida Waite MD medication problems Social History Tobacco Use Types Packs/Day Years [...] often do you attend chur ch or holiness services? More than 4 times per year 11/21/2021 Do you belong to any clubs o r organizations such as adventism groups, unions, fraternal or athletic groups, or [...] place to sleep or slept in a detention (including now)? No 11/21/2021 Sex Assigned at Date Recorded Not on file Job Start Date Occupation Industry Not on file Not on file Not on file documented as of this encounter Miscellaneous Notes * Telephone Encounter - Elaine Hills PA-C - 07/02/2018 12:31 PM EST New rx sent stating in directions pt has been taking, pt reports no allergy * Telephone Encounter - Carolina Barnett - 07/02/2018 12:12 PM EST yes * Telephone Encounter - Elaine Hills PA-C - 07/02/2018 11:46 AM EST Do I need to send a new prescription stating she has been taking this medication without issue? * Telephone Encounter - Lakisha Nassar - 07/02/2018 11:17 AM EST Pharmacy called, asks if the medication is okay to fill, to write it on there so the med wont be called in and so they are aware of it and for us as well. * Telephone Encounter - Elaine Hills PA-C - 07/02/2018 8:26 AM EST Signed, thanks * Telephone Encounter - Lauren Miller M.A. - 07/01/2018 12:57 PM EST Pt is unaware of this thyroid hormone allergy that tic has listed. Called tic andafter holding for 22 minutes and three transfers the call was disconnected. New rx has been pended, please resend * Telephone Encounter - Charley Dominguez - 07/01/2018 11:49 AM EST Pt returning call * Telephone Encounter - Phylicia Watkins C.M.A. - 07/01/2018 10:39 AM EST left message to call back, please put call through to [phone] or re-message to B- side if no answer * Telephone Encounter - Elaine Hills PA-C - 07/01/2018 10:34 AM EST Pt has been taking this medication for years with no reaction? Does patient know why this allergy may be listed/what it is? * Telephone Encounter - Phylicia Watkins C.M.A. - 07/01/2018 10:[address] Ulloa not here, Please advise. * Telephone Encounter - Lakisha Nassar - 07/01/2018 10:15 AM EST Jean from [facility] calling to check on the situation. * Telephone Encounter - Lynne Nassar M.A - 06/30/2018 11:33 AM EST Pharmacy states in system pt has an allergy to thyroid hormones-is it ok to fill this prescription?Reference #[id number] Script fax on 06/24/[address] Ulloa. Patient has been on medication for years. * Telephone Encounter - Marguerite Price - 06/30/2018 11:23 AM EST Who is calling? A pharmacist: Pharmacy: [facility] Pharmacist Name: Chari Name of the medication levothyroxine What is the specific problem or interaction? Pharmacy states in system pt has an allergy to thyroidhormones-is it ok to fill this prescription? Reference #[id number] If the patient is having a problem with taking the med - how long has the problem been going on? today documented in this encounter Plan of Treatment Not on file documented as of this encounter Visit Diagnoses Not on filedocumented in this encounter Care Teams Over The Horizon Targeting Supervisor Relationship Specialty Start Date End Date Neida Waite MD PCP - General Internal Medicine 03/18/1705/16 Madeline Majano MD [address] [place] [address] PCP - General Internal Medicine 05/28/22 Kenneth Pickett MD [address] [place] [address] Specialist Cardiovascular Disease 09/02/20 Sis Matta PA-C [address] [place] [address] Cardiology 09/02/20 documented as of this encounter
--- OUTSIDE RECORDS SUMMARY | 2024-07-29 15:06 | XMS_ITS | Encounter Summary ---
Author Organization [facility] Address [address] [place] [address] Care Team Providers Care Pan Shover Name Role Phone John Paul Huber MD Primary Care Provider Unavail able Neida Waite MD Primary Care Provider U Neida Gomez MD Primary Care Provider U Kenneth Chandra MD Unavailable Sis aMtta PA-C Unavailable Unavailab Madeline Hubbard MD Primary Care Provider Reason for Visit * Reason Onset Date Comments medication problems 10/26/2012 levoxyl Encounter Details Date Type Department Care Team Description 10/26/2012 Telephone Adult Medicine [facility] [address] [place] [address] John Paul Huber MD medication problems (levoxyl) Social History Tobacco Use Types Packs/Day Years [...] How often do you attend chur or druze services? More than 4 times per year 11/21/2021 Do you belong to any clubs o r organizations such as yazidi groups, unions, fraternal or athletic groups, or [...] place to sleep or slept in a intermediate (including now)? No 11/21/2021 Sex Assigned at Date Recorded Not on file Job Start Date Occupation Industry Not on file Not on file Not on file documented as of this encounter Miscellaneous Notes * Telephone Encounter - Ramona Saldivar L.P.N. - 10/26/2012 3:01 PM EDT PLEASE SEE BELOW MED SET UP * Telephone Encounter - Humble Quintero - 10/26/2012 2:43 PM EDT What is the name of the medication patient is having a problem with?: levoxyl What is the problem?: this medication is on hard hat diver backorder. Can synthroid 0.1mg tab berx'd in its place? Please verify and send over new rx Is the patient calling about the problem? NO If the patient is not the caller who is? [facility]-via fax Is this a NEW medication?: NO How long has the patient been taking this medication? N/a Who prescribed this medication for the patient? John Paul Huber MD Who is patients PCP?: John Paul Huber MD [place] Plan[place] Product Type: MEDICARE [id number] documented in this encounter Plan of Treatment Not on file documented as of this encounter Visit Diagnoses Not on filedocumented in this encounter Care Teams Pan Shover Relationship Specialty Start Date End Date John Paul Huber MD PCP - General 06/18/01 04/13/14 Neida Waite MD PCP - General Internal Medicine 03/18/1705/16 Neida Waite MD PCP - General 04/14/14 7 Madeline Majano MD [address] [facility] [address] [place] [address] PCP - General Internal Medicine 05/28/22 Kenneth Pickett MD [address] [place] [address] Specialist Cardiovascular Disease 09/02/20 Sis Matta PA-C [address] [place] [address] Cardiology 09/02/20 documented as of this encounter
--- OUTSIDE RECORDS SUMMARY | 2024-07-29 15:06 | XMS_ITS | Encounter Summary ---
Author Organization [facility] Address [address] [place] [address] Care Team Providers Care Eye Specialist Name Role Phone John Paul Huber MD Primary Care Provider Unavail able Neida Waite MD Primary Care Provider U Neida Gomez MD Primary Care Provider U Kenneth Chandra MD Unavailable [phone] Sis Matta PA-C Unavailable Unavailab Madeline Hubbard MD Primary Care Provider [phone] Encounter Details Date Type Department Care Team Description 01/14/2012 Business Doc Medical Records [address] [place] [id number] Abstract, Provider Social History Tobacco Use Types Packs/Day Years [...] often do you attend chur ch or bahai services? More than 4 times per year 11/21/2021 Do you belong to any clubs o r organizations such as bahai groups, unions, fraternal or athletic groups, or [...] place to sleep or slept in a long-term (including now)? No 11/21/2021 Sex Assigned at Date Recorded Not on file Job Start Date Occupation Industry Not on file Not on file Not on file documented as of this encounter Plan of Treatment Not on file documented as of this encounter Visit Diagnoses Not on filedocumented in this encounter Care Teams Eye Specialist Relationship Specialty Start Date End Date John Paul Huber MD PCP - General 06/18/01 04/13/14 Neida Waite MD PCP - General Internal Medicine 03/18/1705/16 Neida Waite MD PCP - General 04/14/14 7 Madeline Majano MD [address] [address] PCP - General Internal Medicine 05/28/22 Kenneth Pickett MD [address] [address] Specialist Cardiovascular Disease 09/02/20 Sis Matta PA-C [address] [facility] [address] [place] [address] Cardiology 09/02/20 documented as of this encounter
--- OUTSIDE RECORDS SUMMARY | 2024-07-29 15:06 | XMS_ITS | Encounter Summary ---
Author Organization [facility] Address [address] [place] [address] Care Team Providers Care Commercial Construction Superintendent Name Role Phone John Paul Huber MD Primary Care Provider Unavail able Neida Waite MD Primary Care Provider U Neida Gomez MD Primary Care Provider U Kenneth Chandra MD Unavailable [phone] Sis Matta PA-C Unavailable Unavailab Madeline Hubbard MD Primary Care Provider [phone] Encounter Details Date Type Department Care Team Description 03/24/2012 Mortgage Broker Report Medical Records [address] [place] [address] Rashaun Mallory Social History Tobacco Use Types Packs/Day Years [...] often do you attend chur ch or samaritan services? More than 4 times per year 11/21/2021 Do you belong to any clubs o r organizations such as worship groups, unions, fraternal or athletic groups, or [...] place to sleep or slept in a assisted (including now)? No 11/21/2021 Sex Assigned at Date Recorded Not on file Job Start Date Occupation Industry Not on file Not on file Not on file documented as of this encounter Plan of Treatment Not on file documented as of this encounter Visit Diagnoses Not on filedocumented in this encounter Care Teams Commercial Construction Superintendent Relationship Specialty Start Date End Date John Paul Huber MD PCP - General 06/18/01 04/13/14 Neida Waite MD PCP - General Internal Medicine 03/18/1705/16 Neida Waite MD PCP - General 04/14/14 7 Madeline Majano MD [address] [address] PCP - General Internal Medicine 05/28/22 Kenneth Pickett MD [address] [address] Specialist Cardiovascular Disease 09/02/20 Sis Matta PA-C [address] [address] Cardiology 09/02/20 documented as of this encounter
--- OUTSIDE RECORDS SUMMARY | 2024-07-29 15:06 | XMS_ITS | Encounter Summary ---
Author Organization [facility] Address [address] [place] [address] Care Team Providers Care Patient Observation Assistant Name Role Phone Neida Waite MD Primary Care Provider U Neida Gomez MD Primary Care Provider U Kenneth Chandra MD Unavailable Sis Matta PA-C Unavailable Unavailab Madeline Hubbard MD Primary Care Provider [phone] Encounter Details Date Type Department Care Team Description 07/15/2016 Telephone Adult Medicine [facility] [address] [place] [address] John Paul Huber MD Social History Tobacco Use Types Packs/Day [...] any clubs o r organizations such as restorationist groups, unions, fraternal or athletic groups, or [...] place to sleep or slept in a jail (including now)? No 11/21/2021 Sex Assigned at Date Recorded Not on file Job Start Date Occupation Industry Not on file Not on file Not on file documented as of this encounter Plan of Treatment Not on file documented as of this encounter Visit Diagnoses Not on filedocumented in this encounter Care Teams Patient Observation Assistant Relationship Specialty Start Date End Date Neida Waite MD PCP - General Internal Medicine 03/18/1705/16 Neida Waite MD PCP - General 04/14/14 7 Madeline Majano MD [address] [address] PCP - General Internal Medicine 05/28/22 Kenneth Pickett MD [address] [address] Specialist Cardiovascular Disease 09/02/20 Sis Matta PA-C [address] [address] Cardiology 09/02/20 documented as of this encounter
--- OUTSIDE RECORDS SUMMARY | 2024-07-29 15:06 | XMS_ITS | Encounter Summary ---
Author Organization [facility] Address [address] [place] [address] Care Team Providers Care Cotton Ginner Name Role Phone John Paul Huber MD Primary Care Provider Unavail able Neida Waite MD Primary Care Provider U Neida Gomez MD Primary Care Provider U Kenneth Chandra MD Unavailable [phone] Sis Matta PA-C Unavailable Unavailab Madeline Hubbard MD Primary Care Provider [phone] Encounter Details Date Type Department Care Team Description 04/28/2013 Prospecting Driller Helper Report Medical Records [address] [place] [address] Orthopedic, Surgeons Social History Tobacco Use Types Packs/Day Years [...] How often do you attend chur or mu-ism services? More than 4 times per year 11/21/2021 Do you belong to any clubs o r organizations such as tenriism groups, unions, fraternal or athletic groups, or [...] place to sleep or slept in a skilled nursing (including now)? No 11/21/2021 Sex Assigned at Date Recorded Not on file Job Start Date Occupation Industry Not on file Not on file Not on file documented as of this encounter Plan of Treatment Not on file documented as of this encounter Visit Diagnoses Not on filedocumented in this encounter Care Teams Cotton Ginner Relationship Specialty Start Date End Date John Paul Huber MD PCP - General 06/18/01 04/13/14 Neida Waite MD PCP - General Internal Medicine 03/18/1705/16 Neida Waite MD PCP - General 04/14/14 7 Madeline Majano MD [address] [address] PCP - General Internal Medicine 05/28/22 Kenneth Pickett MD [address] [address] Specialist Cardiovascular Disease 09/02/20 Sis Matta PA-C [address] [address] Cardiology 09/02/20 documented as of this encounter
--- OUTSIDE RECORDS SUMMARY | 2024-07-29 15:06 | XMS_ITS | Encounter Summary ---
Author Organization [facility] Address [address] [place] [address] Care Team Providers Care Occupational Therapy Supervisor Name Role Phone John Paul Huber MD Primary Care Provider Unavail able Neida Waite MD Primary Care Provider U Neida Gomez MD Primary Care Provider U Kenneth Chandra MD Unavailable [phone] Sis Matta PA-C Unavailable Unavailab Madeline Hubbard MD Primary Care Provider [phone] Encounter Details Date Type Department Care Team Description 05/25/2012 Associate Professor Of Geography Report Medical Records [address] [place] [address] Juan Madrigal Social History Tobacco Use Types Packs/Day Years [...] How often do you attend chur or mormon services? More than 4 times per year 11/21/2021 Do you belong to any clubs o r organizations such as latter day groups, unions, fraternal or athletic groups, or [...] place to sleep or slept in a prison (including now)? No 11/21/2021 Sex Assigned at Date Recorded Not on file Job Start Date Occupation Industry Not on file Not on file Not on file documented as of this encounter Plan of Treatment Not on file documented as of this encounter Visit Diagnoses Not on filedocumented in this encounter Care Teams Occupational Therapy Supervisor Relationship Specialty Start Date End Date John Paul Huber MD PCP - General 06/18/01 04/13/14 Neida Waite MD PCP - General Internal Medicine 03/18/1705/16 Neida Waite MD PCP - General 04/14/14 7 Madeline Majano MD [address] [address] PCP - General Internal Medicine 05/28/22 Kenneth Pickett MD [address] [address] Specialist Cardiovascular Disease 09/02/20 Sis Matta PA-C [address] [address] Cardiology 09/02/20 documented as of this encounter
--- OUTSIDE RECORDS SUMMARY | 2024-07-29 15:06 | XMS_ITS | Encounter Summary ---
Author Organization [facility] Address [address] [place] [address] Care Team Providers Care Development Vice President Name Role Phone John Paul Huber MD Primary Care Provider Unavail able Neida Waite MD Primary Care Provider U Neida Gomez MD Primary Care Provider U Kenneth Chandra MD Unavailable [phone] Sis Matta PA-C Unavailable Unavailab Madeline Hubbard MD Primary Care Provider [phone] Encounter Details Date Type Department Care Team Description 08/18/2012 Business Doc Medical Records [address] [place] [address] Abstract, Provider Social History Tobacco Use Types [...] often do you attend chur ch or presybeterian services? More than 4 times per year 11/21/2021 Do you belong to any clubs o r organizations such as congregation groups, unions, fraternal or athletic groups, or [...] place to sleep or slept in a usp (including now)? No 11/21/2021 Sex Assigned at Date Recorded Not on file Job Start Date Occupation Industry Not on file Not on file Not on file documented as of this encounter Plan of Treatment Not on file documented as of this encounter Visit Diagnoses Not on filedocumented in this encounter Care Teams Development Vice President Relationship Specialty Start Date End Date John Paul Huber MD PCP - General 06/18/01 04/13/14 Neida Waite MD PCP - General Internal Medicine 03/18/1705/16 Neida Waite MD PCP - General 04/14/14 7 Madeline Majano MD [address] [address] PCP - General Internal Medicine 05/28/22 Kenneth Pickett MD [address] [address] Specialist Cardiovascular Disease 09/02/20 Sis Matta PA-C [address] [facility] [address] [place] [address] Cardiology 09/02/20 documented as of this encounter
--- OUTSIDE RECORDS SUMMARY | 2024-07-29 15:06 | XMS_ITS | Encounter Summary ---
Author Organization [facility] Address [address] [place] [address] Care Team Providers Care Tattoo Artist Name Role Phone Neida Waite MD Primary Care Provider U Kenneth Chandra MD Unavailable [phone] Sis Matta PA-C Unavailable Unavailab Madeline Hubbard MD Primary Care Provider [phone] Encounter Details Date Type Department Care Team Description 09/24/2018 Licensed Insurance Agent Report Medical Records [address] [place] [address] Anabella Lu MD Social History Tobacco Use Types Packs/Day [...] week 11/21/2021 How often do you attend [facility] or sikh services? More than 4 times per year 11/21/2021 Do you belong to any clubs o r organizations such as denominational groups, unions, fraternal or athletic groups, or [...] on filedocumented in this encounter Care Teams Tattoo Artist Relationship Specialty Start Date End Date Neida Waite MD PCP - General Internal Medicine 03/18/1705/16 Madeline Majano MD [address] [address] PCP - General Internal Medicine 05/28/22 Kenneth Pickett MD [address] [address] Specialist Cardiovascular Disease 09/02/20 Sis Matta PA-C [address] [address] Cardiology 09/02/20 documented as of this encounter
--- OUTSIDE RECORDS SUMMARY | 2024-07-29 15:06 | XMS_ITS | Encounter Summary ---
Author Organization [facility] Address [address] [place] [address] Care Team Providers Care Stage Director Name Role Phone Neida Waite MD Primary Care Provider U Neida Gomez MD Primary Care Provider U Kenneth Chandra MD Unavailable [phone] Sis Matta PA-C Unavailable Unavailab Madeline Hubbard MD Primary Care Provider [phone] Encounter Details Date Type Department Care Team Description 06/19/2016 Business Doc Medical Records [address] [place] [address] Abstract, Provider Social History Tobacco Use Types [...] week 11/21/2021 How often do you attend [facility] or worship services? More than 4 times per year [...] on filedocumented in this encounter Care Teams Stage Director Relationship Specialty Start Date End Date Neida Waite MD PCP - General Internal Medicine 03/18/1705/16 Neida Waite MD PCP - General 04/14/14 7 Madeline Majano MD [address] [address] PCP - General Internal Medicine 05/28/22 Kenneth Pickett MD 300 [facility] [address] [place] [address] Specialist Cardiovascular Disease 09/02/20 Sis Matta PA-C [address] [facility] [address] [place] [address] Cardiology 09/02/20 documented as of this encounter
--- OUTSIDE RECORDS SUMMARY | 2024-07-29 15:06 | XMS_ITS | Encounter Summary ---
Author Organization [facility] Address [address] [place] [address] Care Team Providers Care White Hat Hacker Name Role Phone Neida Waite MD Primary Care Provider U Neida Gomez MD Primary Care Provider U Kenneth Chandra MD Unavailable [phone] Sis Matta PA-C Unavailable Unavailab Madeline Hubbard MD Primary Care Provider [phone] Encounter Details Date Type Department Care Team Description 06/05/2015 MUSSEL OPENER/Mass[employer] Report Medical Records [address] [place] [address] Abstract, Provider Social History Tobacco Use Types Packs/Day Years Used Date Smoking Tobacco: Never Smokeless Tobacco: Never Comments:TERRIE Briceño WAS NEVER A SMOKER Alcohol Use Standard [...] week 11/21/2021 How often do you attend [facility] or zoroastrianism services? More than 4 times per year [...] place to sleep or slept in a residential (including now)? No 11/21/2021 Sex Assigned at Date Recorded Not on file Job Start Date Occupation Industry Not on file Not on file Not on file documented as of this encounter Plan of Treatment Not on file documented as of this encounter Visit Diagnoses Not on filedocumented in this encounter Care Teams White Hat Hacker Relationship Specialty Start Date End Date Neida Waite MD PCP - General Internal Medicine 03/18/1705/16 Neida Waite MD PCP - General 04/14/14 7 Madeline Majano MD [address] [address] PCP - General Internal Medicine 05/28/22 Kenneth Pickett MD [address] [address] Specialist Cardiovascular Disease 09/02/20 Sis Matta PA-C [address] [facility] [address] [place] [address] Cardiology 09/02/20 documented as of this encounter
--- OUTSIDE RECORDS SUMMARY | 2024-07-29 15:06 | XMS_ITS | Encounter Summary ---
Author Organization [facility] Address [address] [place] [address] Care Team Providers Care Vat Cleaner Name Role Phone Neida Waite MD Primary Care Provider U Kenneth Chandra MD Unavailable [phone] Sis Matta PA-C Unavailable Unavailab Madeline Hubbard MD Primary Care Provider [phone] Encounter Details Date Type Department Care Team Description 08/28/2018 Orders Only Medical Records [address] [place] [address] Abstract, Provider Social History Tobacco Use Types [...] week 11/21/2021 How often do you attend [facility] or gnosticist services? More than 4 times per year 11/21/2021 Do you belong to any clubs o r organizations such as faith groups, unions, fraternal or athletic groups, or [...] on filedocumented in this encounter Care Teams Vat Cleaner Relationship Specialty Start Date End Date Neida Waite MD PCP - General Internal Medicine 03/18/1705/16 Madeline Majano MD [address] [address] PCP - General Internal Medicine 05/28/22 Kenneth Pickett MD [address] [address] Specialist Cardiovascular Disease 09/02/20 Sis Matta PA-C [address] [address] Cardiology 09/02/20 documented as of this encounter
--- OUTSIDE RECORDS SUMMARY | 2024-07-29 15:06 | XMS_ITS | Encounter Summary ---
Author Organization [facility] Address [address] [place] [address] Care Team Providers Care Health Care Recruiter Name Role Phone eNida Waite MD Primary Care Provider U Neida Gomez MD Primary Care Provider U Kenneth Chandra MD Unavailable [phone] Sis Matta PA-C Unavailable Unavailab Madeline Hubbard MD Primary Care Provider [phone] Encounter Details Date Type Department Care Team Description [facility] [address] [place] [address] John Paul Huber MD Social History Tobacco [...] often do you attend chur ch or anabaptist services? More than 4 times per year 11/21/2021 Do you belong to any clubs o r organizations such as jainism groups, unions, fraternal or athletic groups, or [...] encounter Miscellaneous Notes * Telephone Encounter - Teresa Webster M.A. - 11/01/2016 10:32 AM EDT Last office visit 4.3.17 Last rx was 60 on 11.4.16 No csc * Telephone Encounter - Teresa Webster M.A. - 11/01/2016 10:31 AM EDTFrom: Terrie David To: John Paul Huber MD Sent: 11/01/2016 10:11 AM EDT Subject: Medication Renewal Request Original authorizing provider: MD Terrie Spears would like a refill of the following medications: lorazepam (ATIVAN) 0.5 MG tablet [John Paul Huber MD] Preferred pharmacy: [facility] - [place], [place] - [address] Comment: documented in this encounter Plan of Treatment Not on file documented as of this encounter Visit Diagnoses Not on filedocumented in this encounter Care Teams Health Care Recruiter Relationship Specialty Start Date End Date Neida Waite MD PCP - General Internal Medicine 03/18/1705/16 Neida Waite MD PCP - General 04/14/14 7 Madeline Majano MD 300 [facility] [address] [place] [address] PCP - General Internal Medicine 05/28/22 Kenneth Pickett MD 300 [facility] [address] [place] [address] Specialist Cardiovascular Disease 09/02/20 Sis Matta PA-C 300 [facility] [address] [place] [address] Cardiology 09/02/20 documented as of this encounter
--- OUTSIDE RECORDS SUMMARY | 2024-07-29 15:06 | XMS_ITS | Encounter Summary ---
Author Organization [facility] Address [address] [place] [address] Care Team Providers Care Marine Fireman Name Role Phone Neida Waite MD Primary Care Provider U Kenneth Chandra MD Unavailable [phone] Sis Matta PA-C Unavailable Unavailab Madeline Hubbard MD Primary Care Provider [phone] Encounter Details Date Type Department Care Team Description 11/21/2021 Pt. Non Urgent Medical Question Adult Medicine [facility] [address] [place] [address] Neida Waite MD Social History Tobacco Use [...] week 11/21/2021 How often do you attend [facility] or oriental orthodox services? More than 4 times per year [...] place to sleep or slept in a [facility] (including now)? No 11/21/2021 Sex Assigned at Date Recorded Not on file Job Start Date Occupation Industry Not on file Not on file Not on file COVID-19 Exposure Response Date Recorded In the last 10 days, have yo u been in contact with someone who was confirmed or suspected to have Coronavirus/COVID-19? No / Unsure 11/21/2021 2:27 PM EDT documented as of this encounter Progress Notes * Prachi Jackson - 11/21/2021 10:00 AM EDT Message left for patient to return my call. [employer] SARLhuong msg also sent to pt documented in this encounter Miscellaneous Notes * Telephone Encounter - Marcia Hooks L.P.N. - 11/21/2021 9:59 AM EDTFrom: Terrie David To: Gabrielle Ulloa Sent: 11/21/2021 9:57 AM EDT Subject: Todays visit IMPORTANT: I have just returned from [facility] this past Friday and one of our friends has tested positive for covid, should I keep my appt. Or reschedule....last time I was near her was ...I have no symptoms and my other friends on the trip all tested negative. Let me know cabrera..thanks documented in this encounter Plan of Treatment Not on file documented as of this encounter Visit Diagnoses Not on filedocumented in this encounter Care Teams Marine Fireman Relationship Specialty Start Date End Date Neida Waite MD PCP - General Internal Medicine 03/18/1705/16 Madeline Majano MD [address] [facility] [address] [place] [address] PCP - General Internal Medicine 05/28/22 Kenneth Pickett MD [address] [place] [address] Specialist Cardiovascular Disease 09/02/20 Sis Matta PA-C [address] [facility] [address] [place] [address] Cardiology 09/02/20 documented as of this encounter
--- OUTSIDE RECORDS SUMMARY | 2024-07-29 15:06 | XMS_ITS | Encounter Summary ---
Author Organization Formerly [facility] Address [address] [place] [address] Care Team Providers Care Traffic Maintenance Supervisor Name Role Phone Neida Waite MD Primary Care Provider U Kenneth Chandra MD Unavailable [phone] Sis Matta PA-C Unavailable Unavailab Madeline Hubbard MD Primary Care Provider [phone] Encounter Details Date Type Department Care Team Description 11/16/2021 Epic Trainer Report Medical Records [address] [place] [id number] Judith Galloway APRN Social History Tobacco Use Types Packs/Day Years [...] week 11/21/2021 How often do you attend [facility] or baptist services? More than 4 times per year 11/21/2021 Do you belong to any clubs o r organizations such as adventist groups, unions, fraternal or athletic groups, or [...] on filedocumented in this encounter Care Teams Traffic Maintenance Supervisor Relationship Specialty Start Date End Date Neida Waite MD PCP - General Internal Medicine 03/18/1705/16 Madeline Majano MD [address] [address] PCP - General Internal Medicine 05/28/22 Kenneth Pickett MD [address] [address] Specialist Cardiovascular Disease 09/02/20 Sis Matta PA-C [address] [address] Cardiology 09/02/20 documented as of this encounter
--- OUTSIDE RECORDS SUMMARY | 2024-07-29 15:07 | XMS_ITS | Encounter Summary ---
Author Organization [facility] Address [address] [place] [address] Care Team Providers Care Corporate Wellness Coordinator Name Role Phone Kenneth Pickett MD Unavailable [phone] Sis Matta PA-C Unavailable Unavailab Madeline Majano MD Primary Care Provider [phone] Reason for Visit * Reason Onset Date Comments Prior Authorization 11/25/2022 Encounter Details Date Type Department Care Team Description 11/25/2022 Telephone Internal Medicine - [address], [address] [place], [place] [id number] Madeline Majano MD [address] [place] [phone] Prior Authorization Social History Tobacco Use Types Packs/Day Years [...] suspected to have Coronavirus/COVID-19? No / Unsure 11/21/2022 3:01 PM EDT documented as of this encounter Miscellaneous Notes * Telephone Encounter - Joanie Parnell M.A. - 02/04/2023 11:28 AM EDT Spoke with Carolyn from [facility] who stated that this has to go through pts [facility]. Called [facility] and spoke with Darlene who stated that pt doesn't have pharmacy benefits with them. Esme to call [phone] and sign up. Thank you Please reply back to [id number] Prior Auth Pool Joanie Barnett [facility] Prior Authorization Ext [id number] * Telephone Encounter - Joanie Parnell M.A. - 02/03/2023 3:07 PM EDT Cover my meds message states Member eligibility cannot be determined. * Telephone Encounter - Joanie Parnell M.A. - 11/26/2022 11:39 AM EDT Prior authorization for the hydroxyzine was completed today on cover my meds Dx code F41.9 Anxiety * Telephone Encounter - Guerda Garcia - 11/25/2022 1:25 PM EDT Prior Authorization for Medication-do not complete and send this encounter unless you have the fax from the pharmacy. Is this a Cover My Meds request: [place] of Medication hydrOXYzine (ATARAX) 25 MG tablet Dose of Medication 25 MG What is the RX # from the faxed refill? [phone] - Ref # How does patient take this med? What Pharmacy did the fax come from: [facility] Pharmacy fax #: [phone] [employer] Information from fax: What Prescription Plan does the patient have? BIN/PCN if applicable: Cardholder ID: Person Code: Relationship Code: Help desk phone: [phone] documented in this encounter Plan of Treatment Not on file documented as of this encounter Visit Diagnoses Not on filedocumented in this encounter Care Teams Corporate Wellness Coordinator Relationship Specialty Start Date End Date Madeline Majano MD [address] [place] [address] PCP - General Internal Medicine 05/28/22 Kenneth Pickett MD [address] [place] [address] Specialist Cardiovascular Disease 09/02/20 Sis Matta PA-C [address] [place] [address] Cardiology 09/02/20 documented as of this encounter
--- OUTSIDE RECORDS SUMMARY | 2024-07-29 15:07 | XMS_ITS | Encounter Summary ---
Author Organization [facility] Address [address] [place] [address] Care Team Providers Care Cleaning Handyman Name Role Phone John Paul Huber MD Primary Care Provider Unavail able Neida Waite MD Primary Care Provider U Neida Gomez MD Primary Care Provider U Kenneth Chandra MD Unavailable [phone] Sis Matta PA-C Unavailable Unavailab Madeline Hubbard MD Primary Care Provider [phone] Encounter Details Date Type Department Care Team Description 07/15/2006 [facility] Medical Records [address] [place] [id number] Quinn Dueñas MD Social History Tobacco Use Types Packs/Day [...] How often do you attend chur or uatsdin services? More than 4 times per year 11/21/2021 Do you belong to any clubs o r organizations such as christian groups, unions, fraternal or athletic groups, or [...] place to sleep or slept in a penitentiary (including now)? No 11/21/2021 Sex Assigned at Date Recorded Not on file Job Start Date Occupation Industry Not on file Not on file Not on file documented as of this encounter Plan of Treatment Not on file documented as of this encounter Visit Diagnoses Not on filedocumented in this encounter Care Teams Cleaning Handyman Relationship Specialty Start Date End Date John Paul Huber MD PCP - General 06/18/01 04/13/14 Neida Waite MD PCP - General Internal Medicine 03/18/1705/16 Neida Waite MD PCP - General 04/14/14 7 Madeline Majano MD [address] [address] PCP - General Internal Medicine 05/28/22 Kenneth Pickett MD [address] [address] Specialist Cardiovascular Disease 09/02/20 Sis Matta PA-C [address] [address] Cardiology 09/02/20 documented as of this encounter
--- OUTSIDE RECORDS SUMMARY | 2024-07-29 15:07 | XMS_ITS | Encounter Summary ---
Author Organization [facility] Address [address] [place] [address] Care Team Providers Care Nurse Chemical Dependency Name Role Phone Kenneth Pickett MD Unavailable [phone] Sis Matta PA-C Unavailable Unavailab Madeline Hubbard MD Primary Care Provider [phone] Reason for Visit * Reason Onset Date Comments refill request 11/20/2022 Encounter Details Date Type Department Care Team Description 11/20/2022 Refill Adult Medicine [facility] [address] [place] [address] Neida Waite MD refill request Social History [...] week 11/21/2021 How often do you attend [facility] or yazidi services? More than 4 times per year 11/21/2021 Do you belong to any clubs o r organizations such as judaism groups, unions, fraternal or athletic groups, or [...] place to sleep or slept in a [place] [facility] (including now)? No 11/21/2021 Sex Assigned at [...] encounter Miscellaneous Notes * Telephone Encounter - Lynda Antonio MA - 11/20/2022 4:12 PM EDT Lab Results Component Value Date NA 140 07/05/2022 K 4.5 07/05/2022 CO2 26 07/05/2022 CL 104 07/05/2022 BUN 13 07/05/2022 CREAT 1.00 07/05/2022 GLU 96 07/05/2022 ALB 3.9 07/05/2022 SGOT 31 07/05/2022 SGPT 42 07/05/2022 TBILI 0.8 07/05/2022 ALKPHOS 48 07/05/2022 TP 7.5 07/05/2022 CA 9.8 07/05/2022 GFR 58 07/05/2022 BP Readings from Last 5 Encounters: 07/08/22 128/66 07/05/22 122/64 05/23/22 102/70 11/21/21 116/57 05/31/21 132/70 documented in this encounter Plan of Treatment Not on file documented as of this encounter Visit Diagnoses Not on filedocumented in this encounter Care Teams Nurse Chemical Dependency Relationship Specialty Start Date End Date Madeline Majano MD [address] [place] [address] PCP - General Internal Medicine 05/28/22 Kenneth Pickett MD [address] [facility] [address] [place] [address] Specialist Cardiovascular Disease 09/02/20 Sis Matta PA-C [address] [place] [address] Cardiology 09/02/20 documented as of this encounter
--- OUTSIDE RECORDS SUMMARY | 2024-07-29 15:07 | XMS_ITS | Encounter Summary ---
Author Organization [facility] Address [address] [place] [address] Care Team Providers Care Acquisition Marketing Coordinator Name Role Phone Neiad Waite MD Primary Care Provider U Kenneth Chandra MD Unavailable [phone] Sis Matta PA-C Unavailable Unavailab Madeline Hubbard MD Primary Care Provider Reason for Visit * Reason Onset Date Comments Faxed Refill 05/12/2019 Encounter Details Date Type Department Care Team Description 05/12/2019 Refill Adult Medicine [facility] [address] [place] [address] Neida Waite MD Faxed Refill Social History Tobacco Use Types Packs/Day Years [...] often do you attend chur ch or roman catholic services? More than 4 times per year 11/21/2021 Do you belong to any clubs o r organizations such as oriental orthodox groups, unions, fraternal or athletic groups, or [...] place to sleep or slept in a [facility] (including now)? No 11/21/2021 Sex Assigned at Date Recorded Not on file Job Start Date Occupation Industry Not on file Not on file Not on file documented as of this encounter Miscellaneous Notes * Telephone Encounter - Neida Ulloa MD - 05/12/2019 4:28 PM EST Signed, thank you * Telephone Encounter - Yari ReevesP.N. - 05/12/2019 2:33 PM EST Last office visit 11/16/18 Lab Results Component Value Date CHOL 241 05/03/2019 LDL 142 05/03/2019 HDL 54 05/03/2019 TRIG 229 05/03/2019 SGOT 26 05/03/2019 SGPT 49 05/03/2019 * Telephone Encounter - Subha Deng - 05/12/2019 2:28 PM EST Patient would like script to be: E-PRESCRIBED/FAXED TO PHARMACY WHEN WAS THE PATIENT'S LAST APPOINTMENT IN ADULT MEDICINE? 11/16/18 WHEN WAS THE LAST TIME THE PATIENT SAW THEIR PCP? Same as above Does patient have an upcoming appointment? Yes 12/23/19 (THE MEDICATION REQUESTED IS ON THE MED [...] N/A Patients current insurance carrier is: Payor: MEDICARE-[employer] / Plan: MEDICARE[employer] / Product Type: MEDICARE [id number] documented in this encounter Plan of Treatment Not on file documented as of this encounter Visit Diagnoses Not on filedocumented in this encounter Care Teams Acquisition Marketing Coordinator Relationship Specialty Start Date End Date Neida Waite MD PCP - General Internal Medicine 03/18/1705/16 Madeline Majano MD [address] [address] PCP - General Internal Medicine 05/28/22 Kenneth Pickett MD [address] [facility] [address] [place] [address] Specialist Cardiovascular Disease 09/02/20 Sis Matta PA-C [address] [place] [address] Cardiology 09/02/20 documented as of this encounter
--- OUTSIDE RECORDS SUMMARY | 2024-07-29 15:07 | XMS_ITS | Encounter Summary ---
Author Organization [facility] Address [address] [place] [address] Care Team Providers Care Rehab Trainer Name Role Phone Kenneth Pickett MD Unavailable [phone] Ssi Matta PA-C Unavailable Unavailab Madeline Majano MD Primary Care Provider [phone] Encounter Details Date Type Department Care Team Description 06/24/2023 Refill Internal Medicine - [address], [address] [place] [address] Madeline Majano MD [address] [place] [phone] Social History Tobacco Use Types Packs/Day Years [...] week 11/21/2021 How often do you attend [facility] or sikhism services? More than 4 times per year 11/21/2021 Do you belong to any clubs o r organizations such as anabaptism groups, unions, fraternal or athletic groups, or [...] encounter Miscellaneous Notes * Telephone Encounter - Samaria Mcclellan M.A. - 06/24/2023 12:52 PM EST No visits with results within 3 Month(s) from this visit. Latest known visit with results is: Orders Only on 01/15/2023 Component Date Value ??? GLYCATED HEMOGLOBIN A1C 01/15/2023 5.8 ??? ESTIMATED AVERAGE GLUCOSE 01/15/2023 120 ??? Cholesterol 01/15/2023 141 ??? TRIGLYCERIDES 01/15/2023 155 (H) ??? HDL CHOLESTEROL 01/15/2023 54 ??? LDL CALCULATED 01/15/2023 56 ??? TC-HDLC RATIO 01/15/2023 2.6 ??? GLUCOSE 01/15/2023 94 ??? Blood Urea Nitrogen 01/15/2023 12 ??? CREAT 01/15/2023 0.99 ??? GLOMERULAR FILTRATION RA* 01/15/2023 59 (L) ??? NA 01/15/2023 139 ??? K 01/15/2023 4.2 ??? CL 01/15/2023 107 ??? CARBON DIOXIDE (CO2) 01/15/2023 27 ??? ANION GAP 01/15/2023 5 ??? CALCIUM 01/15/2023 8.7 ??? TOTAL PROTEIN (TP) 01/15/2023 7.5 ??? Albumin 01/15/2023 3.9 ??? BILIRUBIN TOTAL 01/15/2023 1.0 ??? SGOT 01/15/2023 42 ??? SGPT 01/15/2023 60 ??? ALK PHOS 01/15/2023 55 ??? WHITE BLOOD COUNT 01/15/2023 7.7 ??? RED BLOOD COUNT 01/15/2023 4.6 ??? Hemoglobin 01/15/2023 14.0 ??? Hematocrit 01/15/2023 43.3 ??? MEAN CORPUSCULAR VOLUME 01/15/2023 94.1 ??? MEAN CORPUSCULAR HEMOGLO* 01/15/2023 30.4 ??? MEAN CORPUSCULAR HGB CONC 01/15/2023 32.3 ??? RED CELL DISTRIBUTION WI* 01/15/2023 13.1 ??? PLT COUNT 01/15/2023 181 ??? MEAN PLATELET VOLUME 01/15/2023 10.4 ??? NRBC % AUTO 01/15/2023 0.0 ??? NEUTROPHILS % 01/15/2023 64.6 ??? LYMPH % 01/15/2023 21.5 ??? MONO % 01/15/2023 8.6 ??? EOS % 01/15/2023 3.8 ??? BASO % 01/15/2023 0.8 ??? IMMATURE GRANULOCYTES % 01/15/2023 0.7 ??? NRBC # AUTO 01/15/2023 0.00 ??? NEUT # 01/15/2023 4.96 ??? LYMPH # 01/15/2023 1.65 ??? MONO # 01/15/2023 0.66 ??? EOS # 01/15/2023 0.29 ??? BASO # 01/15/2023 0.06 ??? IMMATURE GRANULOCYTES # 01/15/2023 0.05 (H) ??? TSH CASCADE 01/15/2023 3.96 ??? MAGNESIUM (MG) 01/15/2023 2.1 ??? VITAMIN B12 01/15/2023 430 ??? VITAMIN D, 25-HYDROXY 01/15/2023 39 BP Readings from Last 3 Encounters: 01/14/23 114/62 11/21/22 117/60 07/08/22 128/66 documented in this encounter Plan of Treatment Not on file documented as of this encounter Visit Diagnoses Not on filedocumented in this encounter Care Teams Rehab Trainer Relationship Specialty Start Date End Date Madeline Majano MD [address] [place] [address] PCP - General Internal Medicine 05/28/22 Kenneth Pickett MD [address] [place] [address] Specialist Cardiovascular Disease 09/02/20 Sis Matta PA-C [address] [place] [address] Cardiology 09/02/20 documented as of this encounter
--- OUTSIDE RECORDS SUMMARY | 2024-07-29 15:07 | XMS_ITS | Encounter Summary ---
Author Organization [facility] Address [address] [place] [address] Care Team Providers Care Handle And Vent Machine Operator Name Role Phone Kenneth Pickett MD Unavailable [phone] Sis Matta PA-C Unavailable Unavailab Madeline Majano MD Primary Care Provider [phone] Encounter Details Date Type Department Care Team Description 11/20/2022 Refill Internal Medicine - [address], [address] [place] [address] Madeline Majano MD [address] [place] [phone] Social History Tobacco Use Types Packs/Day [...] week 11/21/2021 How often do you attend [facility] or adventist services? More than 4 times per year [...] encounter Miscellaneous Notes * Telephone Encounter - Katherine Bahena - 11/20/2022 1:22 PM EDT TSH Date/Time Value Ref Range Status 05/31/2021 03:58 PM 1.05 0.40 - 4.00 uIU/ml Final 09/13/2003 04:16 PM 39.09 (H) 0.40 - 4.00 uIU/ml Final TSH CASCADE Date/Time Value Ref Range Status 07/05/2022 11:52 AM 3.85 0.40 - 4.00 uIU/ml Final documented in this encounter Plan of Treatment Not on file documented as of this encounter Visit Diagnoses Not on filedocumented in this encounter Care Teams Handle And Vent Machine Operator Relationship Specialty Start Date End Date Madeline Majano MD [address] [place] [address] PCP - General Internal Medicine 05/28/22 Kenneth Pickett MD [address] [place] [address] Specialist Cardiovascular Disease 09/02/20 Sis Matta PA-C [address] [facility] [address] [place] [address] Cardiology 09/02/20 documented as of this encounter
--- OUTSIDE RECORDS SUMMARY | 2024-07-29 15:07 | XMS_ITS | Clinical Summary ---
Author Organization [facility] ity Address [address] [place] [address] Care Team Providers Care Fire Management Specialist Name Role Phone Madeline Majano MD Primary Care Provider [phone] Allergies Active Allergy Reactions Criticality Noted Date Comments Aspirin 12/09/2005 Oscar 12/09/2005 Morphine Sulfate 12/09/2005 WAS TOLD NOT TO TAKE IT DUE TO HAVING ASTHMA Omeprazole Magnesium Hives 12/09/2007 Sertraline 11/01/2016 Medications triamcinolone (KENALOG) 0.025 % cream Apply 1 Application topically 2 (two) times a day. 9 Active nystatin (MYCOSTATIN) ointment Apply thin layer to affected area prn itching 9 Active LORazepam (ATIVAN) 0.5 mg tablet Take 1 tablet (0.5 mg total) by mouth 1 (one) time each day if needed. Max Daily Amount: 0.5 mg Active levothyroxine (SYNTHROID, LEVOTHROID) 100 mcg tablet Take 1 tablet (100 mcg total) by mouth 1 (one) time each day. 4 Active levalbuterol (XOPENEX HFA) 45 mcg/actuation inhaler Inhale 1-2 puffs by mouth. 0 Active ketoconazole (NIZORAL) 2 % shampoo LATHER SCALP WASH SCALP TWICE WEEKLY. 4 Active hyoscyamine (ANASPAZ,LEVSI N) 0.125 mg tablet Take 1 tablet (0.125 mg total) by mouth every 4 (four) hours. Active hydrOXYzine HCL (ATARAX) 25 mg tablet Take 1 tablet (25 mg total) by mouth. 4 Active hydrocortisone (ANUSOL-HC) 2.5 % rectal cream To use for hemorrhoidal pain as needed, up to twice daily 3 Active fluticasone propionate (FLONASE) 50 mcg/actuation nasal spray Administer 1 spray into affected nostril(s). 3 Active fluocinolone acetonide oiL 0.01 % drops 1 Active famotidine (PEPCID) 20 mg tablet Take 1 tablet (20 mg total) by mouth 1 (one) time each day. Active colestipoL (COLESTID) 1 gram tablet 1 Active albuterol HFA (PROAIR HFA ; PROVENTIL HFA ; VENTOLIN HFA) 90 mcg/actuation inhaler USE 2 INHALATIONS ORALLY EVERY 6 HOURS NEEDED FORWHEEZING/ SHORTNESS OF BREATH 4 Active tiZANidine (ZANAFLEX) 4 mg tablet Take 1 tablet (4 mg total) by mouth if needed for muscle spasms. 30 tablet 1 4 Active PARoxetine (PAXIL) 30 mg tablet Take 1 tablet (30 mg total) by mouth 1 (one) time each day in the morning. 90 each 3 5 026 Active simvastatin (ZOCOR) 20 mg tablet Take 1 tablet (20 mg total) by mouth at bedtime. 90 each 3 5 026 Active atenoloL (TENORMIN) 25 mg tablet Take 1 tablet (25 mg total) by mouth 1 (one) time each day. 90 each 3 5 026 Active ubidecarenone (COENZYME Q10 ORAL) ONE DAILY Active melatonin 5 mg tablet Take 1 Tablet by mouth daily as needed (insomnia). 3 Active FLUTICASONE PROPION-SALMET BLANCA INHL Inhale?into the lungs 2 times daily. Active multivit with calcium,iron,m in (MULTIPLE VITAMIN, WOMENS ORAL) Take 1 tablet by mouth daily. Active UNABLE TO FIND CPAP HISTORICAL (HISTORICAL CPAP) Active simvastatin (ZOCOR) 20 mg tablet Take 1 tablet (20 mg total) by mouth. 4 025 Discontin ued(Reord er) PARoxetine (PAXIL) 30 mg tablet Take 1 tablet (30 mg total) by mouth 1 (one) time each day in the morning. 025 Discontin ued(Reord er) atenoloL (TENORMIN) 25 mg tablet Take 1 tablet (25 mg total) by mouth 1 (one) time each day. 025 Discontin ued(Reord er) atenoloL (TENORMIN) 25 mg tablet Take 1 tablet (25 mg total) by mouth 1 (one) time each day. 90 each 3 5 025 Discontin ued(Reord er) PARoxetine (PAXIL) 30 mg tablet Take 1 tablet (30 mg total) by mouth 1 (one) time each day in the morning. 90 each 3 5 025 Discontin ued(Reord er) simvastatin (ZOCOR) 20 mg tablet Take 1 tablet (20 mg total) by mouth at bedtime. 90 each 3 5 025 Discontin ued(Reord er) atenoloL (TENORMIN) 25 mg tablet Take 1 tablet (25 mg total) by mouth 1 (one) time each day. 90 each 3 5 025 Discontin ued(Reord er) Active Problems Problem Noted Date Diagnosed Date COVID-19 02/28/2022 GERD (gastroesophageal reflux disease) 1 Overview (07/26/2024): Last Assessment & Plan: Continue famotidine 20 mg daily and colestipol twice a day. Discussed diet. Watch milk and milk-containing products. Watch glutens. Avoid fried and fatty foods. Follow-up with GI as needed. We will continue to monitor. Abnormal EKG 09/21/2020 Mild persistent asthma without complication 06/17 Overview (07/26/2024): Last Assessment & Plan: Continue Flovent 110 mcg 1 puff twice a day, and Xopenex rescue inhaler as needed. No recent exacerbations. We will continue to monitor. Recurrent major depressive disorder 01/01/2017 Obesity 05/11/2012 PLMD (periodic limb movement disorder) 1 RENITA (obstructive sleep apnea) 12/04/2010 RLS (restless legs syndrome) 10/04/2010 Carpal tunnel syndrome 12/09/2005 Cholelithiasis 12/09/2005 Hyperlipidemia 12/09/2005 Overview (07/26/2024): Last Assessment & Plan: Continue simvastatin 20 mg daily. Lab work is ordered. We will continue to monitor and adjust treatment as indicated. Follow-up in office in 2 weeks. Hypothyroidism 12/09/2005 Overview (07/26/2024): Last Assessment & Plan: Continue levothyroxine. TSH ordered. Treatment can be adjusted based on lab results. Patient will be scheduled first visit in 2 months. We will continue to monitor. Immunizations Name Administration Dates Next Due Influenza Quadravalent, 0.5m l (Fluzone High-dose) 65yo and older 03/23/2020 Influenza Quadravalent, MDCK , 0.5ml, with preservative (Flucelvax) 6mo and older 06/24/2018,04/17/2017 Influenza trivalent, 0.5mL ( Fluad) 65yo and older 07/02/2022,05/31/2021 Influenza trivalent, 0.5mL, preservative free (Fluarix; FluLaval; Fluzone) ages 6mo and older (Afluria) 3 years and older 03/16/2014,03/20/2012,03/11/2011,04/09,05/16/2006 Pfizer SARS-CoV-2 COVID-19, mRNA, LNP-S, preservative free 09/25/2021,03/20/2021,07/26/2020,07/14 Pneumococcal conjugate 13 va lent (Prevnar 13, PCV13) 2mo and older 06/15/2015 Pneumococcal polysaccharide 23 valent (Pneumovax 23) 2yo and older 05/31/2021,05/03/2010 Tdap Tetanus diptheria acell ular pertussis (Boostrix; Adacel) 7yo and older 12/06/2008 Surgical History Surgery Date Site/Laterality Comments CARPAL TUNNEL RELEASE PROCEDURE: [place] NEUROPLASTY &/TRANSPOS MEDIAN NRV CARPAL TUNNE; COMMENT: Kj everett OTHER SURGICAL HISTORY 03/20 PROCEDURE: MAMMOGRAM; COMMENT: neg TONSILLECTOMY ADENOIDECTOMY, BILATERAL MYRINGOTOMY AND TUBES PROCEDURE: OH TONSILLECTOMY & ADENOIDECTOMY <AGE 12 CARDIOVASCULAR STRESS TEST 09/17 PROCEDURE: OH CV STRS TST XERS&/OR RX CONT ECG W/O I&R; COMMENT: neg ESOPHAGOGASTRODUODENOSCOPY 12/02/07 PROCEDURE: OH EGD TRANSORAL BIOPSY SINGLE/MULTIPLE; COMMENT: Moderate antral gastritis-bx:Chronic gastritis with lymphoid nodules, esophagus nl, stomach nl. CHOLECYSTECTOMY 06/22 PROCEDURE: HISTORICAL CHOLECYSTECTOMY; COMMENT: [place] COLONOSCOPY 02/15 PROCEDURE: OH COLONOSCOPY STOMA DX INCLUDING COLLJ SPEC SPX; COMMENT: Mumtaz FELDER; int hem COLONOSCOPY 08/10/12 PROCEDURE: OH COLONOSCOPY STOMA W/RMVL ISSAC POLYP/OTH LES SNARE; COMMENT: adenoma; repeat in 3 yrs COLONOSCOPY W/ BIOPSIES 08/10/15 [facility] PROCEDURE: OH COLONOSCOPY W/BIOPSY SINGLE/MULTIPLE; COMMENT: hyperplastic polyp, tics and hemorrhoids; repeat in 5 yrs CHOLECYSTECTOMY PROCEDURE: OH LAPAROSCOPY SURG CHOLECYSTECTOMY Medical History Medical History Date Comments Other and unspecified hyperlipidemia 12/09/2005 DX:Other and unspecified hyperlipidemia Carpal tunnel syndrome 12/09/2005 DX:Carpal tunnel syndrome Calculus of gallbladder with out mention of cholecystitis or obstruction 12/09/2005 DX:Calculus of gallbladder w ithout mention of cholecystitis or obstruction Unspecified asthma(493.90) 12/09/2005 DX:Un specified asthma(493.90) Esophageal reflux DX:Esophageal reflux Unspecified hypothyroidism 12/09/2005 DX:Un specified hypothyroidism Obesity 05/11/2012 DX:Obesity Family History Medical History Relation Name Comments Other: Other Brother 6 bypass Mental illness Daughter 1 Diabetes Daughter 2 Heart attack Father Stroke Father Cataracts Mother Diabetes Mother Lung cancer Sister Hypertension Son Blindness Neg Hx Glaucoma Neg Hx Macular degeneration Neg Hx Strabismus Neg Hx Relation Name Status Comments Brother Daughter 1 Daughter 2 Father Mother Sister Son Social History Tobacco Use Types Packs/Day Years Used Date Smoking Tobacco: Never Smokeless Tobacco: Never Alcohol Use Standard Drinks/Week Comments Yes 0 (1 standard drink = 0.6 oz pur e alcohol) Comments Unknown Sex and Gender Information Value Date Recorded Sex Assigned at Female 07/06/2024 9:44 AM EST Legal Sex Female 2:50 AM EST Gender Identity Female 07/06/2024 9:44 AM EST Sexual Orientation Straight 07/06/2024 9: 44 AM EST Obstetrics History Last Filed Vital Signs Vital Sign Reading Time Taken Comments Blood Pressure 137/79 01/21/2024 2:32 PM EDT Pulse 76 01/21/2024 2:32 PM EDT Temperature - - Respiratory Rate - - Oxygen Saturation - - Inhaled Oxygen Concentration - - Weight 99.8 kg (220 lb) 01/21/2024 2:32 PM EDT Height 157.5 cm (5' 2 ) 01/21/2024 2:32 PM EDT Body Mass Index 40.24 01/21/2024 2:32 PM EDT Plan of Treatment Upcoming Encounters Date Type Department Care Team (Late st Contact Info) Description 01/21/2025 11:30 AM EDT Office Visit Internal Medicine - [address] [place] [phone] Madeline Majano MD [address] [place] [id number] 04/04/2025 3:30 PM EDT Appointment Radiology Department - [address] [phone] Health Maintenance Due Date Last Done Comments Zoster Vaccines (1 of 2) 1995 DTaP,Tdap,and Td Vaccines (2 - Td or Tdap) 01/03/2009 12/06/2008 RSV Immunization Patients 60+ Years Old (1 - 1-dose 75+ series) 2020 Colorectal Cancer Screening: Colonoscopy 05/25/2022 08/10/2015 Social Influencers of Health Screening 05/25/2022 COVID-19 Vaccine ( season) 2024 09/25/2021, 03/20/2021, 07/26/2020, Additional history exists Influenza Vaccine (#1) 2024 3, 05/31/2021, 03/23/2020, Additional history exists Depression Screening 01/20/2025 01/21/2024 Falls Risk Assessment 01/20/2025 01/21/2024 Cholesterol Screening (Lipid Panel) 01/20/2029 01/21/2024, 01/21/2024 Osteoporosis Screening (Bone Density Screening) 12/06/2031 12/05/2021 Hepatitis C Screening Completed 05/01/2016 Pneumococcal Vaccine: 50+ Years Completed 05/31/2021, 06/15/2015, 05/03/2010 HIB Vaccines Aged Out No longer eligi ble based on patient's age to complete this topic HPV Vaccines Aged Out No longer eligi ble based on patient's age to complete this topic Hepatitis A Vaccines Aged Out No long er eligible based on patient's age to complete this topic Hepatitis B Vaccines Aged Out No long er eligible based on patient's age to complete this topic IPV Vaccines Aged Out No longer eligi ble based on patient's age to complete this topic MMR Vaccines Aged Out No longer eligi ble based on patient's age to complete this topic Meningococcal ACWY Vaccine Aged Out N o longer eligible based on patient's age to complete this topic Meningococcal B Vacine Aged Out No lo nger eligible based on patient's age to complete this topic RSV Immunization Patients Under 20 months Aged Out No longer eligible based on patient's age to complete this topic Varicella Vaccines Aged Out No longer eligible based on patient's age to complete this topic Procedures Procedure Name Priority Date/Time Associated Diagnosis Comments DEPRESSION SCREENING Routine 01/21/2024 FALLS RISK ASSESSMENT Routine 01/21/2024 LIPID PANEL Routine 01/21/2024 DXA BONE DENSITY STUDY 1+ SITS AXIAL SKEL Routine 12/05/2021 2:36 PM EDT Asymptomatic menopausal state HEPATITIS C SCREENING Routine 05/01/2016 COLONOSCOPY Routine 08/10/2015 from Last 3 Months or Most Recently Relevant to Health Maintenance Results * Falls Risk Assessment (01/21/2024) Pathologist [facility] Falls Risk Assessment Abstracted Historical Provider HEALTH MAINTENANCE Final Result * Depression Screening (01/21/2024) Pathologist [facility] Depression Screening Abstracted [facility] Provider HEALTH MAINTENANCE Final Result * (ABNORMAL) Lipid panel (01/21/2024) [facility] LDL/HDL Ratio 3 0 - 4 Triglycerides 167(A) 0 - 150 mg/dL Cholesterol 156 0 - 200 mg/dL HDL 61 >=40 mg/dL LDL Cholesterol 62 0 - 100 mg/dL Blood Venous blood specimen / Unknown [facility] Provider LAB BLOOD ORDERABLES Violette l Result * DXA BONE DENSITY STUDY 1+ SITS AXIAL SKEL (12/05/2021 2:36 PM EDT) Anatomical Region Laterality Modality Bone Densitometr y 12/22/2020 9:52 AM EDT Narrative 12/05/2021 5:41 PM EDT BONE DENSITY ? Lumbar Spine T-score is +0.6 ?? (SD relative to 20-29 y/o adult) Z-score is +3.1 ??(SD relative to age matched peers) This is normal by criteria defined by the WHO. Left Hip T-score is +0.2 Z-score is +2.3 This is normal by criteria defined by the WHO. Comparison exam(s): significant increase in bone density of ??lumbar spine when compared to most recent bone density examination ?? Confidence level is +/-95%. Impression: Based on the World Health Organization criteria, Juliane David should be classified as having normal bone density. The [facility] Department of Internal Medicine recommends using National Osteoporosis Foundation (NOF) guidelines in treatment decisions related to osteoporosis. NOF guidelines suggest considering treatment for postmenopausal women and men aged 50 or older presenting with the following: History of hip or vertebral fracture. T-score less than or equal to -2.5 (DXA) at the femoral neck, total hip, or spine, after appropriate evaluation to exclude secondary causes. Low bone mass (T-score between -1.0 and -2.5 at the femoral neck or spine) AND a 10-year probability of a hip fracture greater than or equal to 3% OR a 10-year probability of a major osteoporosis-related fracture greater than or equal to 20% based on the [place]-adapted WHO algorithm Please note that all treatment decisions require clinical judgment and consideration of individual patient factors, including patient preferences, co-morbidities, previous drug use, risk factors not captured in the FRAX model (e.g., frailty, falls, vitamin D deficiency, increased bone turnover, interval significant decline in bone density) and possible under- or over-estimation of fracture risk by FRAX. Procedure Note Gabbi Marie MD - 06/04/2022 BONE DENSITY Lumbar Spine T-score is +0.6 (SD relative to 20-29 y/o adult) Z-score is +3.1 (SD relative to age matched peers) This is normal by criteria defined by the WHO. Left Hip T-score is +0.2 Z-score is +2.3 This is normal by criteria defined by the WHO. Comparison exam(s): significant increase in bone density of lumbar spinewhen compared to most recent bone density examination Confidence level is +/-95%. Impression: Based on the World Health Organization criteria, Juliane David should beclassified as having normal bone density. The [facility] Department of Internal Medicine recommendsusing National Osteoporosis Foundation (NOF) guidelines in treatmentdecisions related to osteoporosis. NOF guidelines suggest consideringtreatment for postmenopausal women and men aged 50 or older presentingwith the following: History of hip or vertebral fracture. T-score less than or equal to -2.5 (DXA) at the femoral neck, total hip,or spine, after appropriate evaluation to exclude secondary causes. Low bone mass (T-score between -1.0 and -2.5 at the femoral neck or spine)AND a 10-year probability of a hip fracture greater than or equal to 3% ORa 10-year probability of a major osteoporosis-related fracture greaterthan or equal to 20% based on the [place]-adapted WHO algorithm Please note that all treatment decisions require clinical judgment andconsideration of individual patient factors, including patientpreferences, co-morbidities, previous drug use, risk factors not capturedin the FRAX model (e.g., frailty, falls, vitamin D deficiency, increasedbone turnover, interval significant decline in bone density) and possibleunder- or over-estimation of fracture risk by FRAX. Trell ELLIS IM DXA PROCEDURES Final Resul t * Hepatitis C Screening (05/01/2016) [facility] Hepatitis C Screening Abstracted [facility] Provider HEALTH MAINTENANCE Final Result * Colonoscopy (08/10/2015) [facility] Colonoscopy No interpreta tion,abstr acted Anatomical Region Laterality Modality Other Historical Provider HEALTH MAINTENANCE Final Result from Last 3 Months or Most Recently Relevant to Health Maintenance Care Teams Fire Management Specialist Relationship Specialty Start Date End Date Madeline Majano MD [address] [place] [address] PCP - General 05/28/22
--- OUTSIDE RECORDS SUMMARY | 2024-07-29 15:07 | XMS_ITS | Encounter Summary ---
Author Organization [facility] Address [address] [place] [address] Care Team Providers Care Machine Shop Supervisor Name Role Phone Kenneth Pickett MD Unavailable [phone] Sis Matta PA-C Unavailable Unavailab Madeline Majano MD Primary Care Provider [phone] Encounter Details Date Type Department Care Team Description 03/10/2023 Refill Adult Medicine [facility] [address] [place] [address] Madeline Majano MD [address] [place] [phone] Social History Tobacco Use Types Packs/Day [...] week 11/21/2021 How often do you attend [facility] or yazidism services? More than 4 times per year [...] encounter Miscellaneous Notes * Telephone Encounter - Randa Barnett - 03/10/2023 3:24 PM EDT BP Readings from Last 3 Encounters: 01/14/23 114/62 11/21/22 117/60 07/08/22 128/66 documented in this encounter Plan of Treatment Not on file documented as of this encounter Visit Diagnoses Not on filedocumented in this encounter Care Teams Machine Shop Supervisor Relationship Specialty Start Date End Date Madeline Majano MD [address] [facility] [address] [place] [address] PCP - General Internal Medicine 05/28/22 Kenneth Pickett MD [address] [facility] [address] [place] [address] Specialist Cardiovascular Disease 09/02/20 Sis Matta PA-C [address] [facility] [address] [place] [address] Cardiology 09/02/20 documented as of this encounter
--- OUTSIDE RECORDS SUMMARY | 2024-07-29 15:07 | XMS_ITS | Encounter Summary ---
Author Organization [facility] Address [address] [place] [address] Care Team Providers Care Metalworker Name Role Phone Kenneth Pickett MD Unavailable [phone] Sis Matta PA-C Unavailable Unavailab Madeline Hubbard MD Primary Care Provider [phone] Encounter Details Date Type Department Care Team Description 04/02/2023 Senior Lead Java Developer Report Medical Records [address] [place] [address] [place] [address] [place] [address] Social History Tobacco Use Types Packs/Day Years [...] week 11/21/2021 How often do you attend [facility] or jewish services? More than 4 times per year 11/21/2021 Do you belong to any clubs o r organizations such as druze groups, unions, fraternal or athletic groups, or [...] on filedocumented in this encounter Care Teams Metalworker Relationship Specialty Start Date End Date Madeline Majano MD [address] [facility] [address] [place] [address] PCP - General Internal Medicine 05/28/22 Kenneth Pickett MD [address] [facility] [address] [place] [address] Specialist Cardiovascular Disease 09/02/20 Sis Matta PA-C [address] [facility] [address] [place] [address] Cardiology 09/02/20 documented as of this encounter
--- OUTSIDE RECORDS SUMMARY | 2024-07-29 15:07 | XMS_ITS | Encounter Summary ---
Author Organization [facility] Address [address] [place] [address] Care Team Providers Care Kaiwhakahaere Name Role Phone Kenneth Pickett MD Unavailable [phone] Sis Matta PA-C Unavailable Unavailab Madeline Majano MD Primary Care Provider [phone] Encounter Details Date Type Department Care Team Description 11/25/2022 Refill Internal Medicine - [address], [address] [place] [address] Madeline Majano MD [address] [place] [phone] Social History Tobacco Use Types Packs/Day [...] week 11/21/2021 How often do you attend [facility] or confucianist services? More than 4 times per year 11/21/2021 Do you belong to any clubs o r organizations such as zoroastrian groups, unions, fraternal or athletic groups, or [...] PM EDT documented as of this encounter Plan of Treatment Not on file documented as of this encounter Visit Diagnoses Not on filedocumented in this encounter Care Teams Kaiwhakahaere Relationship Specialty Start Date End Date Madeline Majano MD [address] [address] PCP - General Internal Medicine 05/28/22 Kenneth Pickett [facility] [address] [place] [address] Specialist Cardiovascular Disease 09/02/20 Sis Matta PA-C [address] [facility] [address] [place] [address] Cardiology 09/02/20 documented as of this encounter
--- OUTSIDE RECORDS SUMMARY | 2024-07-29 15:07 | XMS_ITS | Encounter Summary ---
Author Organization [facility] Address [address] [place] [address] Care Team Providers Care Mutual Fund Manager Name Role Phone Kenneth Pickett MD Unavailable [phone] Sis Matta PA-C Unavailable Unavailab Madeline Hubbard MD Primary Care Provider [phone] Encounter Details Date Type Department Care Team Description 04/06/2024 Transfer Records Medical Records [address] [place] [address] Abstract, Provider Social History Tobacco Use Types [...] How often do you attend [facility] or yarsanism services? More than 4 times per year 11/21/2021 Do you belong to any clubs o r organizations such as mandaen groups, unions, fraternal or athletic groups, or [...] place to sleep or slept in a custodial (including now)? No 11/21/2021 Sex Assigned at Date Recorded Not on file Job Start Date Occupation Industry Not on file Not on file Not on file documented as of this encounter Plan of Treatment Not on file documented as of this encounter Visit Diagnoses Not on filedocumented in this encounter Care Teams Mutual Fund Manager Relationship Specialty Start Date End Date Madeline Majano MD [address] [facility] [address] [place] [address] PCP - General Internal Medicine 05/28/22 Kenneth Pickett MD [address] [facility] [address] [place] [address] Specialist Cardiovascular Disease 09/02/20 Sis Matta PA-C [address] [facility] [address] [place] [address] Cardiology 09/02/20 documented as of this encounter
--- OUTSIDE RECORDS SUMMARY | 2024-07-29 15:07 | XMS_ITS | Encounter Summary ---
Author Organization [facility] Address [address] [place] [address] Care Team Providers Care Piling Cutter Name Role Phone Neida Waite MD Primary Care Provider U Kenneth Chandra MD Unavailable [phone] Sis Matta PA-C Unavailable Unavailab Madeline Hubbard MD Primary Care Provider [phone] Encounter Details Date Type Department Care Team Description 07/15/2019 Refill Adult Medicine [facility] [address] [place] [address] Neida Waite MD Social History Tobacco Use [...] you attend [facility] or congregational services? More than 4 times per year 11/21/2021 Do you belong to any clubs o r organizations such as quaker groups, unions, fraternal or athletic groups, or [...] encounter Miscellaneous Notes * Telephone Encounter - Chikis Royal R.N. - 07/15/2019 3:04 PM EST Declined. Was given 6 month supply on 03/01/2019 documented in this encounter Plan of Treatment Not on file documented as of this encounter Visit Diagnoses Not on filedocumented in this encounter Care Teams Piling Cutter Relationship Specialty Start Date End Date Neida Waite MD PCP - General Internal Medicine 03/18/1705/16 Madeline Majano MD [address] [facility] [address] [place] [address] PCP - General Internal Medicine 05/28/22 Kenneth Pickett MD [address] [facility] [address] [place] [address] Specialist Cardiovascular Disease 09/02/20 Sis Matta PA-C [address] [facility] [address] [place] [address] Cardiology 09/02/20 documented as of this encounter
--- OUTSIDE RECORDS SUMMARY | 2024-07-29 15:07 | XMS_ITS | Clinical Summary ---
Author Organization [facility] Address [address] [place] [address] Care Team Providers Care Remote Computer Terminal Operator Name Role Phone Kenneth Pickett MD Unavailable [phone] Sis Matta PA-C Unavailable Unavailab Madeline Hubbard MD Primary Care Provider [phone] Allergies Active Allergy Reactions Severity Noted Date Comments Aspirin 12/09/2005 Oscar 12/09/2005 Morphine Sulfate 12/09/2005 WAS TOLD NOT TO TAKE IT DUE TO HAVING ASTHMA Omeprazole Magnesium Hives/Urticaria 12/09/2007 Sertraline 11/01/2016 Medications Medication Sig Dispensed Refills Start Date End Date Status COENZYME Q10 ONE DAILY 0 Active CPAP Historical (HISTORICAL CPAP) 8 cm by Nasal route at bedtime. Via nasal mask/ [employer] 0 Active fluticasone (FLONASE) 50 MCG/ACT nasal spray 1 [place] by Nasal route daily. 1 Bottle 5 12/09/2012 Active Multiple Vitamins-Minerals (WOMENS MULTI VITAMIN & MINERAL OR) Take 1 tablet by mouth daily. 0 Active triamcinolone (KENALOG) 0.025 % cream Apply to affected area twice daily 30 g 0 06/23/2018 Active nystatin (MYCOSTATIN) ointment Apply thin layer to affected area prn itching 30 g 0 10/09/2018 Active levalbuterol (XOPENEX HFA) 45 MCG/ACT inhaler Inhale 1-2 Puffs into the lungs every 4 hours as needed for Wheezing, Shortness of Breath or Cough. 3 Inhaler 1 07/08/2019 Active Colestipol HCl 1 g Tab 0 12/13/2020 Active Fluocinolone Acetonide 0.01 % Oil 0 10/16/2020 Active lorazepam (ATIVAN) 0.5 MG tablet Take 1 Tablet by mouth daily as needed. 0 Active famotidine (PEPCID) 20 MG tablet Take 1 Tablet by mouth daily. 0 Active hyoscyamine (ANASPAZ,LEVSIN) 0.125 MG tablet Take 1 Tablet by mouth every 4 hours as needed. 0 Active Fluticasone-Salmet milton (ADVAIR DISKUS IN) Inhale into the lungs 2 times daily. 0 Active Melatonin 5 MG Tab Take 1 Tablet by mouth daily as needed (insomnia). 30 Tablet 0 07/08/2022 Active hydrocortisone (ANUSOL-HC) 2.5 % rectal cream To use for hemorrhoidal pain as needed, up to twice daily 30 g 0 08/16/2022 Active hydrOXYzine (ATARAX) 25 MG tablet Take 1 Tablet by mouth 2 times daily as needed for Itching or Anxiety for up to 30 days. 60 Tablet 1 06/19/2023 Active paroxetine (PAXIL) 30 MG tablet Take 1 Tablet by mouth every morning. 90 Tablet 1 06/24/2023 Active simvastatin (ZOCOR) 20 MG tablet Take 1 Tablet by mouth at bedtime. 90 Tablet 1 09/08/2023 Active atenolol (TENORMIN) 25 MG tablet TAKE 1 TABLET BY MOUTH EVERY DAY 90 Tablet 1 09/17/2023 Active tizanidine (ZANAFLEX) 4 MG tablet Take 1 Tablet by mouth daily as needed for Muscle spasms. 30 Tablet 1 10/29/2023 Active levothyroxine 100 MCG tablet Take 1 Tablet by mouth daily. 90 Tablet 1 12/15/2023 Active Active Problems Problem Noted Date COVID-19 02/28/2022 Postmenopausal 12/22/2020 Last Assessment & Plan: Overdue for bone density and that is ordered today. We will continue to monitor. GERD (gastroesophageal reflux disease) 0 12/22/2020 Last Assessment & Plan: Continue famotidine 20 mg daily and colestipol twice a day. Discussed diet. Watch milk and milk-containing products. Watch glutens. Avoid fried and fatty foods. Follow-up with GI as needed. We will continue to monitor. Abnormal EKG 09/21/2020 History of palpitations 12/03/2019 Last Assessment & Plan: Continue atenolol 25 mg daily. Patient states no recent episodes of palpitations or racing heart. We will continue to monitor along with cardiology. She is up-to-date with cardiology. Food allergy 07/08/2019 Mild persistent asthma without complicat ion 07/08/2019 Last Assessment & Plan: Continue Flovent 110 mcg 1 puff twice a day, and Xopenex rescue inhaler as needed. No recent exacerbations. We will continue to monitor. Recurrent major depressive disorder 12/14 Obesity 05/11/2012 PLMD (periodic limb movement disorder) 0 02/05/2011 RENITA (obstructive sleep apnea) 12/04/2010 RLS (restless legs syndrome) 10/04/2010 Hypothyroidism 12/09/2005 Last Assessment & Plan: Continue levothyroxine. TSH ordered. Treatment can be adjusted based on lab results. Patient will be scheduled first visit in 2 months. We will continue to monitor. HYPERLIPIDEMIA 12/09/2005 Last Assessment & Plan: Continue simvastatin 20 mg daily. Lab work is ordered. We will continue to monitor and adjust treatment as indicated. Follow-up in office in 2 weeks. Carpal tunnel syndrome 12/09/2005 CHOLELITHIASIS 12/09/2005 Resolved Problems Problem Noted Date Resolved Date Dyspnea on exertion 09/21/2020 07/05/2022 Anxiety 11/16/2018 11/30/2018 Asthma 12/09/2005 07/05/2022 Immunizations Name Administration Dates Next Due COVID-19 (Pfizer) 09/25/2021,,07/26/2020,07/14 Influenza (> 6 Months) 03/16/2014,2011,03/11/2011,04/09,05/16/2006 Influenza Vaccine-quadrivale nt 4 Years Plus 06/24/2018,04/17/2017 Influenza vaccine high dose age 65 and over 07/02/2022,05/31/2021 Pneumoccoccal(Adult) Polysac charide PPSV23 05/31/2021,05/03/2010 Pneumococcal Conjugate PCV-13 06/15/2015 Tdap 12/06/2008 Family History Medical History Relation Name Comments Other Brother 6 bypass Mental Disorder Daughter 1 Diabetes Daughter 2 [place] Father Stroke Father Cataract Mother Diabetes Mother CA Lung Sister Hypertension Son Blindness Negative Hx Glaucoma Negative Hx Macular Degeneration Negative Hx Strabismus Negative Hx Relation Name Status Comments Brother Daughter 1 Daughter 2 Father Mother Sister Son Social History Tobacco Use Types Packs/Day Years Used Date Smoking Tobacco: Never Smokeless Tobacco: Never Tobacco Cessation:Counseling Given: Not Answered Comments:TERRIE STATES SHE WAS NEVER A SMOKER [...] How often do you attend chur or protestant services? More than 4 times per year 11/21/2021 Do you belong to any clubs o r organizations such as anglican groups, unions, fraternal or athletic groups, or [...] file Not on file Not on file Last Filed Vital Signs Vital Sign Reading Time Taken Comments Blood Pressure 137/79 01/21/2024 2:32 PM EDT Pulse 76 01/21/2024 2:32 PM EDT Temperature 36.4 ??C (97.6 ??F) 01/21/2024 2:32 PM ED T Respiratory Rate 16 07/05/2022 11:17 AM EST Oxygen Saturation 94% 01/21/2024 2:32 PM EDT Inhaled Oxygen Concentration - - Weight 99.8 kg (220 lb) 01/21/2024 2:32 PM EDT Height 157.5 cm (5' 2 ) 01/21/2024 2:32 PM EDT Body Mass Index 40.24 01/21/2024 2:32 PM EDT Plan of Treatment Health Maintenance Due Date Last Done Comments COLON CANCER SCREENING 08/10/2020 6, 08/10/2012, 03/03/2002 Covid-19 Vaccine ( season) 2024 09/25/2021, 03/20/2021, 07/26/2020, Additional history exists INFLUENZA (#1) 2024 07/02/2022, 05/16, 06/24/2018, Additional history exists BMI CHECK/ADVISE 06/16/2024 01/21/2024, 11/2023, 01/14/2023, Additional history exists DEPRESSION SCREEN 01/20/2025 01/21/2024, , 10/06/2018, Additional history exists FALL RISK ASSESSMENT 01/20/2025 01/21/2024 (Completed), 11/21/2021, 04/04/2020, Additional history exists MAMMOGRAM 03/18/2025 03/18/2024, 11/15, 05/31/2019, Additional history exists DTAP/TDAP/TD (4 - Td or Tdap) 03/30/2026 03/30/2016, 03/28/2016 (External Completion), 12/06/2008 CHOLESTEROL SCREENING 01/20/2029 01/21/2024 , 01/15/2023, 11/21/2021, Additional history exists SHINGLES VACCINE (1 of 2) 01/21/2060 Po stponed from 1995 (Other Circumstances) BONE DENSITY SCREENING 01/21/2064 2, 07/17/2016, 04/10/2011, Additional history exists Postponed from 12/06/2023 (Not Indicated) HEPATITIS C SCREENING Completed 05/01/2016 PNEUMOCOCCAL VACCINE Completed 05/31/2021, 06/15/2015, 05/03/2010 Advance Directives For more information, please contact: [phone] Latest Code Status on File Code Status Date Activated Date Inactivated Comments Full Code 01/21/2024 3:25 PM Patient wan ts everything for short-term. Care Teams Remote Computer Terminal Operator Relationship Specialty Start Date End Date Madeline Majano MD [address] [place] [address] PCP - General Internal Medicine 05/28/22 Kenneth Pickett MD [address] [place] [address] Specialist Cardiovascular Disease 09/02/20 Sis Matta PA-C [address] [place] [address] Cardiology 09/02/20
--- OUTSIDE RECORDS SUMMARY | 2024-07-29 15:07 | XMS_ITS | Encounter Summary ---
Author Organization [facility] Address [address] [place] [address] Care Team Providers Care Seed Sorter Name Role Phone Kenneth Pickett MD Unavailable [phone] Sis Matta PA-C Unavailable Unavailab Madeline Majano MD Primary Care Provider [phone] Reason for Visit * Reason Onset Date Comments refill request 07/01/2022 Encounter Details Date Type Department Care Team Description 07/01/2022 Refill Internal Medicine - [address], [address] [place] [address] Madeline Majano MD [address] [place] [phone] refill request Social History Tobacco Use Types [...] often do you attend chur ch or mormon services? More than 4 times per year 11/21/2021 Do you belong to any clubs o r organizations such as shinto groups, unions, fraternal or athletic groups, or [...] * Telephone Encounter - Katherine Bahena - 07/01/2022 11:26 AM EST Last ordered: 2 months ago by Char Mendes PA-C Pended to pcp TSH Date/Time Value Ref Range Status 05/31/2021 03:58 PM 1.05 0.40 - 4.00 uIU/ml Final 09/13/2003 04:16 PM 39.09 (H) 0.40 - 4.00 uIU/ml Final TSH CASCADE Date/Time Value Ref Range Status 04/15/2022 02:05 PM 3.33 0.40 - 4.00 uIU/ml Final * Telephone Encounter - Guerda Garcia - 07/01/2022 10:34 AM EST Abimael 03/01/2022 Nov 07/08/[address] [facility] documented in this encounter Plan of Treatment Not on file documented as of this encounter Visit Diagnoses Not on filedocumented in this encounter Care Teams Seed Sorter Relationship Specialty Start Date End Date Madeline Majano MD [address] [facility] [address] [place] [address] PCP - General Internal Medicine 05/28/22 Kenneth Pickett MD [address] [facility] [address] [place] [address] Specialist Cardiovascular Disease 09/02/20 Sis Matta PA-C [address] [facility] [address] [place] [address] Cardiology 09/02/20 documented as of this encounter
--- OUTSIDE RECORDS SUMMARY | 2024-07-29 15:07 | XMS_ITS | Encounter Summary ---
Author Organization [facility] Address [address] [place] [address] Care Team Providers Care Track Liner Operator Name Role Phone John Paul Huber MD Primary Care Provider Unavail able Kee Mendieta DO Primary Care Provider Unavaila Neida Oneil MD Primary Care Provider U Neida Gomez MD Primary Care Provider U Kenneth Chandra MD Unavailable [phone] Sis Matta PA-C Unavailable Unavailab Madeline Hubbard MD Primary Care Provider [phone] Encounter Details Date Type Department Care Team Description 07/28/1998 [facility] OBGYN - [address] [address] Nurse, [facility]/[address] [address] Social History Tobacco Use Types Packs/Day Years Used Date Smoking Tobacco: Never Assessed Alcohol Habits Answer Date Recorded How often [...] often do you attend chur ch or zoroastrianism services? More than 4 times [...] place to sleep or slept in a snf (including now)? No 11/21/2021 Sex Assigned at Date Recorded Not on file Job Start Date Occupation Industry Not on file Not on file Not on file documented as of this encounter Plan of Treatment Not on file documented as of this encounter Visit Diagnoses Not on filedocumented in this encounter Care Teams Track Liner Operator Relationship Specialty Start Date End Date John Paul Huber MD PCP - General 06/18/01 04/13/14 Kee Mendieta DO PCP - General 03/25/1995 06/17/01 Neida Waite MD PCP - General Internal Medicine 03/18/1705/16 Neida Waite MD PCP - General 04/14/14 7 Madeline Majano MD [address] [place] [address] PCP - General Internal Medicine 05/28/22 Kenneth Pickett MD [address] [facility] [address] [place] [address] Specialist Cardiovascular Disease 09/02/20 Sis Matta PA-C [address] [facility] [address] [place] [address] Cardiology 09/02/20 documented as of this encounter
--- OUTSIDE RECORDS SUMMARY | 2024-07-29 15:07 | XMS_ITS | Encounter Summary ---
Author Organization [facility] Address [address] [place] [address] Care Team Providers Care Hand Folder Name Role Phone John Paul Huber MD Primary Care Provider Unavail able Neida Waite MD Primary Care Provider U Neida Gomez MD Primary Care Provider U Kenneth Chandra MD Unavailable Sis Matta PA-C Unavailable Unavailab Madeline Hubbard MD Primary Care Provider [phone] Encounter Details Date Type Department Care Team Description 10/23/2009 [facility] Administrator Report Medical Records [address] [place] [id number] Maria E Rivera MD Social History Tobacco Use Types Packs/Day Years Used Date Smoking Tobacco: Never Comments:TERRIE STATES SHE WAS NEVER [...] often do you attend chur ch or worship services? More than 4 times per year 11/21/2021 Do you belong to any clubs o r organizations such as uatsdin groups, unions, fraternal or athletic groups, or [...] on filedocumented in this encounter Care Teams Hand Folder Relationship Specialty Start Date End Date John Paul Huber MD PCP - General 06/18/01 04/13/14 Neida Waite MD PCP - General Internal Medicine 03/18/1705/16 Neida Waite MD PCP - General 04/14/14 7 Madeline Majano MD [address] [address] PCP - General Internal Medicine 05/28/22 Kenneth Pickett MD [address] [address] Specialist Cardiovascular Disease 09/02/20 Sis Matta PA-C [address] [address] Cardiology 09/02/20 documented as of this encounter
--- OUTSIDE RECORDS SUMMARY | 2024-07-29 15:07 | XMS_ITS | Encounter Summary ---
Author Organization [facility] Address [address] [place] [address] Care Team Providers Care Booster Plant Operator Name Role Phone Kenneth Pickett MD Unavailable Sis Matta PA-C Unavailable Unavailab Madeilne Hubbard MD Primary Care Provider [phone] Encounter Details Date Type Department Care Team Description 12/23/2022 Proof Coins Inspector Report Medical Records [address] [place] [id number] Yemi Esteves MD Social History Tobacco Use Types Packs/Day [...] week 11/21/2021 How often do you attend [facility] or episcopalian services? More than 4 times per year 11/21/2021 Do you belong to any clubs o r organizations such as amish groups, unions, fraternal or athletic groups, or [...] on filedocumented in this encounter Care Teams Booster Plant Operator Relationship Specialty Start Date End Date Madeline Majano MD [address] [address] PCP - General Internal Medicine 05/28/22 Kenneth Pickett MD [address] [facility] [address] [place] [address] Specialist Cardiovascular Disease 09/02/20 Sis Matta PA-C [address] [facility] [address] [place] [address] Cardiology 09/02/20 documented as of this encounter
--- OUTSIDE RECORDS SUMMARY | 2024-07-29 15:07 | XMS_ITS | Encounter Summary ---
Author Organization [facility] Address [address] [place] [address] Care Team Providers Care Gm Mobile Name Role Phone John Paul Huber MD Primary Care Provider Unavail able Neida Waite MD Primary Care Provider U Neida Gomez MD Primary Care Provider U Kenneth Chandra MD Unavailable [phone] Sis Matta PA-C Unavailable Unavailab Madeline Hubbard MD Primary Care Provider [phone] Encounter Details Date Type Department Care Team Description 12/15/2013 Supervisory Investigative Specialist Report Medical Records [address] [place] [id number] Andrae Thomas, SEA Social History Tobacco Use Types Packs/Day Years [...] How often do you attend chur or amish services? More than 4 times per year 11/21/2021 Do you belong to any clubs o r organizations such as samaritan groups, unions, fraternal or athletic groups, or [...] on filedocumented in this encounter Care Teams Gm Mobile Relationship Specialty Start Date End Date John Paul Huber MD PCP - General 06/18/01 04/13/14 Neida Waite MD PCP - General Internal Medicine 03/18/1705/16 Neida Waite MD PCP - General 04/14/14 7 Madeline Majano MD [address] [address] PCP - General Internal Medicine 05/28/22 Kenneth Pickett MD [address] [address] Specialist Cardiovascular Disease 09/02/20 Sis Matta PA-C [address] [address] Cardiology 09/02/20 documented as of this encounter
--- OUTSIDE RECORDS SUMMARY | 2024-07-29 15:07 | XMS_ITS | Encounter Summary ---
Author Organization [facility] Address [address] [place] [address] Care Team Providers Care Size Tester Name Role Phone Neida Waite MD Primary Care Provider U Kenneth Chandra MD Unavailable [phone] Sis Matta PA-C Unavailable Unavailab Madeline Hubbard MD Primary Care Provider [phone] Reason for Visit * Reason Onset Date Comments lab test 04/29/2019 CHOLESTEROL Encounter Details Date Type Department Care Team Description 04/29/2019 Telephone Adult Medicine [facility] [address] [place] [address] Neida Waite MD lab test (CHOLESTEROL) Social History Tobacco Use Types Packs/Day Years [...] often do you attend chur ch or quaker services? More than 4 times per year 11/21/2021 Do you belong to any clubs o r organizations such as mormon groups, unions, fraternal or athletic groups, or [...] place to sleep or slept in a correction (including now)? No 11/21/2021 Sex Assigned at Date Recorded Not on file Job Start Date Occupation Industry Not on file Not on file Not on file documented as of this encounter Miscellaneous Notes * Telephone Encounter - Yari Ortega L.P.N. - 04/29/2019 10:58 AM EST David Terrie (Self) [phone] Call placed to pt. Attempted to set up follow up appointment with . Pt flatly declined. She stated she did not need to see the doctor she just wants blood work done. Explained to pt that the doctorhas to put orders in for blood work and it is not something nursing can just add for her. Pt statedshe is on a lot of medicine and wants to have her thyroid, liver and cholesterol checked. Advisedthat a message would be sent to her PCP for review. Pt verbalized understanding. Routed to PCP. * Telephone Encounter - Fannie Casas - 04/29/2019 10:53 AM EST Caller requesting call back from provider:Dr Ulloa Is the caller the patient? YES If caller is not the patient, what is the callers name? N/A Callers relationship to patient? N/A If person calling is not the patient themselves, is there a verbal release in FYI or permanent comments for this person: NO Reason for call back: Needs cholesterol, liver function and thyroid testing. Please put in an order. Has it done every few months. Please call pt back. Caller offered to speak with the nurse for assistance: YES Response: Patient offered to speak with nurse for assistance and patient agreed. Message forwarded to nurse. documented in this encounter Plan of Treatment Not on file documented as of this encounter Visit Diagnoses Not on filedocumented in this encounter Care Teams Size Tester Relationship Specialty Start Date End Date Neida Waite MD PCP - General Internal Medicine 03/18/1705/16 Madeline Majano MD [address] [address] PCP - General Internal Medicine 05/28/22 eKnneth Pickett MD [address] [facility] [address] [place] [address] Specialist Cardiovascular Disease 09/02/20 Sis Matta PA-C [address] [place] [address] Cardiology 09/02/20 documented as of this encounter
--- OUTSIDE RECORDS SUMMARY | 2024-07-29 15:07 | XMS_ITS | Encounter Summary ---
Author Organization [facility] Address [address] [place] [address] Care Team Providers Care Wardrobe Assistant Name Role Phone John Paul Huber MD Primary Care Provider Unavail able Neida Waite MD Primary Care Provider U Neida Gomez MD Primary Care Provider U Kenneth Chandra MD Unavailable [phone] Sis Matta PA-C Unavailable Unavailab Madeline Hubbard MD Primary Care Provider [phone] Reason for Visit * Reason Onset Date Comments Medication 03/18/2014 Encounter Details Date Type Department Care Team Description 03/18/2014 Pt. Non Urgent Medical Question Adult Medicine - [place] [address] [place] [address] John Paul Huber MD Social History Tobacco [...] How often do you attend chur or yarsani services? More than 4 times per year 11/21/2021 Do you belong to any clubs o r organizations such as caodaism groups, unions, fraternal or athletic groups, or [...] on file documented as of this encounter Progress Notes * Annette Goldberg L.P.N. - 03/18/2014 10:16 AM EDTFrom: Terrie David To: John Paul Huber MD Sent: 03/18/2014 10:14 AM EDT Subject: Thyroid prescription (not taking any right now) new, or lesser dose?? What new or (lesser amt., of what I now have) of thyroid med. should I be taking. Right now I am NOT TAKING ANY!!.....the one I have gives me severe heart palpatations...........(not sure how to spell it).....please let me know cabrera...thank you. documented in this encounter Plan of Treatment Not on file documented as of this encounter Visit Diagnoses Not on filedocumented in this encounter Care Teams Wardrobe Assistant Relationship Specialty Start Date End Date John Paul Huber MD PCP - General 06/18/01 04/13/14 Neida Waite MD PCP - General Internal Medicine 03/18/1705/16 Neida Waite MD PCP - General 04/14/14 7 Madeline Majano MD [address] [facility] [address] [place] [address] PCP - General Internal Medicine 05/28/22 Kenneth Pickett MD [address] [facility] [address] [place] [address] Specialist Cardiovascular Disease 09/02/20 Sis Matta PA-C [address] [place] [address] Cardiology 09/02/20 documented as of this encounter
--- OUTSIDE RECORDS SUMMARY | 2024-07-29 15:07 | XMS_ITS | Encounter Summary ---
Author Organization [facility] Address [address] [place] [address] Care Team Providers Care Firmware Architect Name Role Phone Kenneth Pickett MD Unavailable [phone] Sis Matta PA-C Unavailable Unavailab Madeline Majano MD Primary Care Provider [phone] Encounter Details Date Type Department Care Team Description 04/09/2023 Refill Internal Medicine - [address], [address] [place] [address] Madeline Majano MD [address] [place] [phone] Social History Tobacco Use Types Packs/Day [...] week 11/21/2021 How often do you attend [facility] or anabaptism services? More than 4 times per year 11/21/2021 Do you belong to any clubs o r organizations such as latter-day groups, unions, fraternal or athletic groups, or [...] encounter Miscellaneous Notes * Telephone Encounter - Madeline Majano MD - 04/09/2023 5:06 PM EDT Medication sent to [facility] at [facility] for 3-month supply * Telephone Encounter - Randa Barnett - 04/09/2023 2:41 PM EDT BP Readings from Last 3 Encounters: 01/14/23 114/62 11/21/22 117/60 07/08/22 128/66 documented in this encounter Plan of Treatment Not on file documented as of this encounter Visit Diagnoses Not on filedocumented in this encounter Care Teams Firmware Architect Relationship Specialty Start Date End Date Madeline Majano MD [address] [facility] [address] [place] [address] PCP - General Internal Medicine 05/28/22 Kenneth Pickett MD [address] [place] [address] Specialist Cardiovascular Disease 09/02/20 Sis Matta PA-C [address] [facility] [address] [place] [address] Cardiology 09/02/20 documented as of this encounter
--- OUTSIDE RECORDS SUMMARY | 2024-07-29 15:07 | XMS_ITS | Encounter Summary ---
Author Organization [facility] Address [address] [place] [address] Care Team Providers Care Server Software Engineer Name Role Phone Kenneth Pickett MD Unavailable [phone] Sis Matta PA-C Unavailable Unavailab Madeline Majano MD Primary Care Provider [phone] Encounter Details Date Type Department Care Team Description 12/15/2023 Refill Internal Medicine - [address], [address] [place] [address] Madeline Majano MD [address] [place] [phone] Social History Tobacco Use Types Packs/Day [...] you attend [facility] or [facility] services? More than 4 times per year [...] encounter Miscellaneous Notes * Telephone Encounter - Alka Barlow M.A. - 12/15/2023 1:34 PM EDT AVTAR 2.6.24 Lab Results Component Value Date TSH 3.96 01/15/2023 documented in this encounter Plan of Treatment Not on file documented as of this encounter Visit Diagnoses Not on filedocumented in this encounter Care Teams Server Software Engineer Relationship Specialty Start Date End Date Madeline Majano MD [address] [address] PCP - General Internal Medicine 05/28/22 Kenneth Pickett MD [address] [place] [address] Specialist Cardiovascular Disease 09/02/20 Sis Matta PA-C [address] [facility] [address] [place] [address] Cardiology 09/02/20 documented as of this encounter
== END 2024-07-29 15:29 | disposition home or self-care (01) ==
LOC: HO.HKAS 15:01
PROVIDERS: Visit Provider Internal Medicine Nephrology
DX: I10 Essential (primary) hypertension (principal)
CPT/HCPCS: 99214

== ENCOUNTER 2024-12-27 14:24 | Outpatient (AMB) | payer BC, SELFPAY ==
--- NOTE | 2024-12-27 14:26 | A.OFFVIS_ITS ---
Vital Signs 12/27/24 14:31 Height 5 ft 2 in Weight 226 lb BMI 41.3 BP 111/71 Blood Pressure Location Lt brachial Position Sitting Pulse 74 Intake Visit Reasons: 8 month follow up Intake Note: Juliane presents in the office as a 8 month follow up. CC: She states that her BP has been low - sometimes she gets pains in the stomach on and off. She states she does not have celiac but she does have intolerant to wheat. Manager Material Required: No Allergies Milk Containing Products (Dairy) (Milk Containing Products) Allergy (Mild, Verified 12/27/24 14:39) Unknown omeprazole Allergy (Mild, Verified 12/27/24 14:39) Unknown wheat Allergy (Mild, Verified 12/27/24 14:39) Unknown aspirin Allergy (Unknown, Verified 12/27/24 14:39) Unknown caffeine Allergy (Unknown, Verified 12/27/24 14:39) unknown clarithromycin (Prevpac) Allergy (Unknown, Verified 12/27/24 14:39) unknown lansoprazole (Prevpac) Allergy (Unknown, Verified 12/27/24 14:39) unknown sertraline Allergy (Unknown, Verified 12/27/24 14:39) unknown HPI HPI 8 month follow up: Details: 79 y/o f w/ hx of hypothyroidism, depression, here for f/u RECAP: Had admission w/ severe gastroenteritis and dehydration 09/2018, now much better her appetite is good she takes famotidine which helps her GERD lorie also has lactose intolerance, 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, for which she takes and was helping before her gastroenteritis I refered her to immunology due to low IgM levels, also being cheked for allergies she was c/o loose to soft stools, sometimes hard to go she takes colestipol twice daily, given that due to bile acid gastritis which helps nausea is present, she has morning cramps in mid, lower abdo, usually relieved by passing stool sometimes 3 times in the morning she had ongoing social issues w/ daughter she was on chronic low dose amxoil for igM def, no approval from insurance company for IgM son aged 55 - ?[place], also her 2 best friends Colonoscopy 2016--hyperplastic polyp panc elastase--nml giardia nml INTERIM: she took ABx for 2 weeks and helped bloating a little, but if she eats the wrong things can make it worse she takes a mix of mag, ca, vit d and it helps her bowels she is happy with colestipol as it still works well stays away from milk and gluten no rectal bleeding, or melena EXAM: GENERAL: The patient is well developed and nontoxic. VITAL SIGNS:see workflow HEENT: Nonicteric sclerae, PERRLA, EOMI. Oropharynx clear. Moist mucous membranes. Conjunctivae appear well perfused. No thyroid mass. CHEST: Chest wall is nontender. HEART: Regular rate and rhythm without murmurs. LUNGS: Clear to auscultation bilaterally. ABDOMEN: Soft, positive bowel sounds, nontender, no organomegaly.no flank tenderness SKIN: No rash, no excessive bruising, petechiae, or purpura. NEUROLOGIC: Cranial nerves II-XII intact without motor/sensory deficit. 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 3/ bloating and gluten intolerance--avoiding food triggers PLAN: 1/ cont with colestipol, no major SE with it, will refill 2/ avoid food triggers --use fodmap diet leaflet 3/ f.u cards for palpitations, pulse regular today [facility] Surgical History History of esophagogastroduodenoscopy (EGD) H/O colonoscopy Hx of cholecystectomy History of carpal tunnel surgery Family History Daughter Diabetes HTN (hypertension) Mother Diabetes Cancer, face Father Cancer, face Social History Household Members: Children Alcohol intake: current Alcohol intake frequency: does not drink Physical Exam Vital Signs: Last Vital Signs Pulse 74 12/27/24 14:31 BP 111/71 12/27/24 14:31 BMI result Body Mass Index 41.3 Assessment & Plan Assessment & Plan (1) Diarrhea: Code(s): R19.7 - Diarrhea, unspecified Category: Medical Plan: as above Coding Level of Care Code Est Pt Level 3 (43626) Diagnoses Diarrhea R19.7
[2024-12-27 14:31] VITALS: BP 111/71; PULSE 74; BMI 41.3
--- OUTSIDE RECORDS SUMMARY | 2024-12-27 15:46 | XMS_ITS | Encounter Summary ---
Author Organization [facility] Address [address] [place] [address] Care Team Providers Care Pin Sticker Name Role Phone John Paul Huber MD Primary Care Provider Unavail able Neida Waite MD Primary Care Provider U Neida Gomez MD Primary Care Provider U Kenneth Chandra MD Unavailable [phone] Sis Matta PA-C Unavailable Unavailab Madeline Hubbard MD Primary Care Provider [phone] Reason for Visit * Reason Onset Date Comments refill request 08/09/2013 multiple Encounter Details Date Type Department Care Team Description 08/09/2013 Refill Adult Medicine - [place] [address] [place] [address] John Paul Huber MD refill request (multiple) Social History Tobacco Use Types Packs/Day Years [...] often do you attend chur ch or religion services? More than 4 times per year 11/21/2021 Do you belong to any clubs o r organizations such as sabianist groups, unions, fraternal or athletic groups, or [...] Telephone Encounter - Teresa Webster M.A. - 08/09/2013 9:38 AM EST stefani 12.09.12 Component Value Date TSH 3.14 04/05/2013 Component Value Date CHOL 200 04/05/2013 LDL 109 04/05/2013 HDL 62 04/05/2013 TRIG 147 04/05/2013 SGOT 22 04/05/2013 SGPT 29 04/05/2013 * Telephone Encounter - Wale Flynn - 08/09/2013 9:16 AM EST Patient would like script to be: E-PRESCRIBED/FAXED TO PHARMACY WHEN WAS THE PATIENT'S LAST APPOINTMENT IN ADULT MEDICINE? 12.09.12 WHEN WAS THE LAST TIME THE PATIENT SAW THEIR PCP? 05.11.12 Does patient have an upcoming appointment? NO (THE MEDICATION REQUESTED IS ON THE MED LIST ABOVE) All of the medications requested were on the CURRENT MEDS list Did you check the Pharmacy information above?: YES Patient wants: 90 -day supply Is this a mail order prescription request ? YES Patients current insurance carrier is: [place] Product Type: MED[place]ARE [id number] documented in this encounter Plan of Treatment Not on file documented as of this encounter Visit Diagnoses Not on filedocumented in this encounter Care Teams Pin Sticker Relationship Specialty Start Date End Date John Paul Huber MD PCP - General 06/18/01 04/13/14 Neida Waite MD PCP - General Internal Medicine 03/18/1705/16 Neida Waite MD PCP - General 04/14/14 7 Madeline Majano MD [address] [address] PCP - General Internal Medicine 05/28/22 Kenneth Pickett MD [address] [facility] [address] [place] [address] Specialist Cardiovascular Disease 09/02/20 Sis Matta PA-C [address] [place] [address] Cardiology 09/02/20 documented as of this encounter
--- OUTSIDE RECORDS SUMMARY | 2024-12-27 15:46 | XMS_ITS | Clinical Summary ---
Author Organization 175 [facility] Address [address] [place] [address] Phone Care Team Providers [employer] Teammate Name Role Phone Madeline Majano MD Primary Care Provider [phone] Allergies Active Allergy Reactions Criticality Noted Date Comments Aspirin 12/09/2005 Oscar 12/09/2005 Morphine Sulfate 12/09/2005 WAS TOLD NOT TO TAKE IT DUE TO HAVING ASTHMA Omeprazole Magnesium Hives 12/09/2007 Sertraline 11/01/2016 Medications triamcinolone (KENALOG) 0.025 % cream Apply 1 Application topically 2 (two) times a day. 06/23/19 19 Active nystatin (MYCOSTATIN) ointment Apply thin layer to affected area prn itching 10/10/19 19 Active LORazepam (ATIVAN) 0.5 mg tablet Take 1 tablet (0.5 mg total) by mouth 1 (one) time each day if needed. Active levalbuterol (XOPENEX HFA) 45 mcg/actuation inhaler Inhale 1-2 puffs by mouth. 07/08/19 20 Active ketoconazole (NIZORAL) 2 % shampoo LATHER SCALP WASH SCALP TWICE WEEKLY. 10/29/19 24 Active hyoscyamine (ANASPAZ,LEVSI N) 0.125 mg tablet Take 1 tablet (0.125 mg total) by mouth every 4 (four) hours. Active hydrOXYzine HCL (ATARAX) 25 mg tablet Take 1 tablet (25 mg total) by mouth. 06/19/19 24 Active hydrocortisone (ANUSOL-HC) 2.5 % rectal cream To use for hemorrhoidal pain as needed, up to twice daily 08/17/19 23 Active fluticasone propionate (FLONASE) 50 mcg/actuation nasal spray Administer 1 spray into affected nostril(s). 12/10/19 13 Active fluocinolone acetonide oiL 0.01 % drops 10/17/19 21 Active famotidine (PEPCID) 20 mg tablet Take 1 tablet (20 mg total) by mouth 1 (one) time each day. Active colestipoL (COLESTID) 1 gram tablet 12/14/19 21 Active albuterol HFA (PROAIR HFA ; PROVENTIL HFA ; VENTOLIN HFA) 90 mcg/actuation inhaler USE 2 INHALATIONS ORALLY EVERY 6 HOURS NEEDED FORWHEEZING/ SHORTNESS OF BREATH 03/25/20 24 Active PARoxetine (PAXIL) 30 mg tablet Take 1 tablet (30 mg total) by mouth 1 (one) time each day in the morning. 90 each 3 07/06/19 25 026 Active simvastatin (ZOCOR) 20 mg tablet Take 1 tablet (20 mg total) by mouth at bedtime. 90 each 3 07/06/19 25 026 Active atenoloL (TENORMIN) 25 mg tablet Take 1 tablet (25 mg total) by mouth 1 (one) time each day. 90 each 3 07/21/19 25 026 Active ubidecarenone (COENZYME Q10 ORAL) ONE DAILY Active melatonin 5 mg tablet Take 1 Tablet by mouth daily as needed (insomnia). 07/08/19 23 Active FLUTICASONE PROPION-SALMET BLANCA INHL Inhale into the lungs 2 times daily. Active multivit with calcium,iron,m in (MULTIPLE VITAMIN, WOMENS ORAL) Take 1 tablet by mouth daily. Active UNABLE TO FIND CPAP HISTORICAL (HISTORICAL CPAP) Active Synthroid 100 mcg tablet TAKE 1 TABLET DAILY 90 tablet 1 08/24/19 25 Active clotrimazole-b etamethasone (LOTRISONE) 1-0.05 % cream Apply thin layer to affected area BID for 2 weeks then stop. Avoid face and groin. 30 g 5 04/21/20 25 Active fluconazole (Diflucan) 100 mg tablet Take 1 tablet (100 mg total) by mouth 1 (one) time each day. 5 each 10/05/19 25 Active tiZANidine (ZANAFLEX) 4 mg tablet TAKE 1 TABLET BY MOUTH DAILY NEEDED FOR MUSCLE SPASMS. 30 tablet 1 12/28/19 25 Active tiZANidine (ZANAFLEX) 4 mg tablet TAKE 1 TABLET BY MOUTH DAILY NEEDED FOR MUSCLE SPASMS. 30 tablet 1 10/26/19 25 025 Discontinued Active Problems Problem Noted Date Diagnosed Date COVID-19 02/28/2022 GERD (gastroesophageal reflux disease) Overview (07/26/2024): Last Assessment & Plan: Continue [...] continue to monitor. Recurrent major depressive disorder ([facility] V24 ) 01/01/2017 Obesity 05/11/2012 PLMD (periodic limb movement [...] 2 months. We will continue to monitor. Encounters Date Type Department Care Team Description 11/23/2024 Telephone Internal Medicine - [address] [address] Madeline Majano MD questionerre 10/04/2024 2:00 PM EDT Office Visit Internal Medicine - [address] [place] [address] Trudy Jackson MD Rash (Primary Dx); Hypothyroidism due to acquired atrophy of thyroid; Mixed hyperlipidemia; Other fatigue 10/01/2024 Telephone Internal Medicine - [place] [facility] [address] [place] [address] Alka Sexton [place] Rash from Last 3 Months Immunizations Name Administration Dates Next Due Influenza Quadravalent, 0.5m l (Fluzone High-dose) 65yo and older 03/23/2020 Influenza Quadravalent, MDCK , 0.5ml, with preservative (Flucelvax) 6mo and older 06/24/2018,04/17/2017 Influenza trivalent, 0.5mL ( Fluad) 65yo and older 07/02/2022,05/31/2021 Influenza trivalent, 0.5mL, preservative free (Fluarix; FluLaval; Fluzone) ages 6mo and older (Afluria) 3 years and older 03/16/2014,03/20/2012,03/11/2011,04/09,05/16/2006 [place] SARS-CoV-2 COVID-19, mRNA, LNP-S, preservative free 09/25/2021,03/20/2021,07/26/2020,07/14 [...] in 3 yrs COLONOSCOPY W/ BIOPSIES 08/10/15 [facility] PROCEDURE: AR COLONOSCOPY W/BIOPSY SINGLE/MULTIPLE; COMMENT: [...] Tobacco: Never Tobacco Cessation:Counseling Given: Not Answered Alcohol Use Standard Drinks/Week Comments Yes 0 [...] Sign Reading Time Taken Comments Blood Pressure 122/74 10/04/2024 2:16 PM EDT Pulse 65 10/04/2024 2:16 PM EDT Temperature 35.8 C (96.4 F) 10/04/2024 2:16 PM EDT Respiratory Rate - - Oxygen Saturation 97% 10/04/2024 2:16 PM EDT Inhaled Oxygen Concentration - - Weight 104 kg (229 lb) 10/04/2024 2:16 PM EDT Height 157.5 cm (5' 2 ) 01/21/2024 2:32 PM EDT Body Mass Index 41.88 01/21/2024 2:32 PM EDT Plan of Treatment Upcoming Encounters Date Type Department Care Team (Late st Contact Info) Description 01/06/2025 2:40 PM EDT Office Visit [facility] - [facility] [address] [facility] [address] [place] [address] Arin Lawrence NP [address] [facility] [address] [place] [address] 01/21/2025 11:30 AM EDT Office Visit Internal Medicine - [place] 175 [facility] [address] [place] [address] Madeline Majano MD 175 [facility] [address] [place] [address] 04/04/2025 3:30 PM EDT Appointment Radiology Department - [address] [address] Health Maintenance Due Date Last Done Comments Zoster Vaccines (1 of 2) 1995 Colorectal Cancer Screening: Colonoscopy 05/25/2022 08/10/2015 Social Influencers of Health Screening 05/25/2022 COVID-19 Vaccine (9 - 2024-25 season) 2024 03/11/2024, 04/10/2023, 05/07/2022, Additional history exists Depression Screening 01/20/2025 01/21/2024 Falls Risk Assessment 01/20/2025 01/21/2024 Medicare Annual Wellness Visit 01/20/2025 01/21/2024 Influenza Vaccine (#1) 2025 , 04/10/2023, 07/02/2022, Additional history exists DTaP,Tdap,and Td Vaccines (3 - Td or Tdap) 03/30/2026 03/30/2016, 12/06/2008 Cholesterol Screening (Lipid Panel) 01/20/2029 01/21/2024, 01/21/2024 Osteoporosis Screening (Bone Density Screening) 12/06/2031 12/05/2021 Hepatitis C Screening Completed 05/01/2016 Pneumococcal Vaccine: 50+ Years Completed 05/31/2021, 06/15/2015, 05/03/2010 RSV Immunization Adult Patients Completed 03/11/2024 HIB Vaccines Aged Out No longer eligi [...] age to complete this topic Meningococcal B Vaccine Aged Out No l onger eligible based on patient's age to complete this topic RSV Immunization Patients Under 20 months Aged Out No longer eligible based on patient's age to complete this topic Varicella Vaccines Aged Out No longer eligible based on patient's age to complete this topic Procedures Procedure Name Priority Date/Time Associated Diagnosis Comments CBC WITH AUTO DIFFERENTIAL Routine 10/05/2024 4:34 PM EDT Hypothyroidism due to acquired atrophy of thyroid Mixed hyperlipidemia Other fatigue COMPREHENSIVE METABOLIC PANEL Routine 10/05/2024 4:34 PM EDT Hypothyroidism due to acquired atrophy of thyroid Mixed hyperlipidemia Other fatigue CBC AND DIFFERENTIAL Routine 10/05/2024 4:34 PM EDT Hypothyroidism due to acquired atrophy of thyroid Mixed hyperlipidemia Other fatigue THYROID STIMULATING HORMONE WITH REFLEX TO FREE T4 AND FREE T3 Routine 10/05/2024 4:34 PM EDT Hypothyroidism due to acquired atrophy of thyroid Mixed hyperlipidemia Other fatigue DEPRESSION SCREENING Routine 01/21/2024 FALLS RISK ASSESSMENT Routine 01/21/2024 LIPID PANEL Routine 01/21/2024 DXA BONE DENSITY STUDY 1+ SITS AXIAL SKEL Routine 12/05/2021 2:36 PM EDT Asymptomatic menopausal state HEPATITIS C SCREENING Routine 05/01/2016 COLONOSCOPY Routine 08/10/2015 from Last 3 Months or Most Recently Relevant to Health Maintenance Results * Thyroid stimulating hormone with reflex to free t4 and free t3 (10/05/2024 4:34 PM EDT) Pathologist [facility] TSH 3.43 0.40 - 4.00 mcIU/mL LAB CHEMISTRY METHOD 10/05/2024 8:[address] [facility] Blood Venous blood specimen / Unknown Venipuncture / Unknown 10/05/2024 4:34 PM EDT 10/05/2024 4:34 PM EDT us Trudy Jackson MD LAB BLOOD ORDERABLES Final Res ult [facility] [address] [place] [address], [place] [phone] * (ABNORMAL) CBC auto differential (10/05/2024 4:34 PM EDT) Pathologist [facility] WBC 5.7 4.8 - 10.8 K/mcL LAB HEMETOLOGY METHOD [facility] RBC 4.50 3.80 - 4.80 M/mcL LAB HEMETOLOGY METHOD 10/05/2024 6:45 PM [facility] Hemoglobin 13.5 11.5 - 16.0 g/dL LAB HEMETOLOGY METHOD 10/05/2024 6:45 PM [facility] Hematocrit 42.4 35.0 - 47.0 % LAB HEMETOLOGY METHOD 10/05/2024 6:45 PM [facility] MCV 94.9 79.0 - 98.0 FL LAB HEMETOLOGY METHOD 10/05/2024 6:45 PM [facility] MCH 30.2 27.0 - 32.0 pcg LAB HEMETOLOGY METHOD 10/05/2024 6:45 PM [facility] MCHC 31.8(L) 32.0 - 37.0 g/dL LAB HEMETOLOGY METHOD 10/05/2024 6:45 PM [facility] RDW 13.1 11.0 - 15.0 % LAB HEMETOLOGY METHOD 10/05/2024 6:45 PM [facility] Platelets 177 130 - 400 K/mcL LAB HEMETOLOGY METHOD 10/05/2024 6:45 PM [facility] MPV 10.5 7.0 - 11.0 FL LAB HEMETOLOGY METHOD 10/05/2024 6:45 PM [facility] NRBC 0.0 <1.0 % LAB HEMETOLOGY METHOD 10/05/2024 6:45 PM [facility] NRBC Absolute 0.00 <0.10 K/mcL LAB HEMETOLOGY METHOD 10/05/2024 6:45 PM [facility] Neutrophils Relative 60.2 % LAB HEMETOLOGY METHOD 10/05/2024 6:[address] [facility] Lymphocytes Relative 25.0 % LAB HEMETOLOGY METHOD 10/05/2024 6:45 PM [facility] Monocytes Relative 10.1 % LAB HEMETOLOGY METHOD 10/05/2024 6:45 PM [facility] Eosinophils Relative 3.1 % LAB HEMETOLOGY METHOD 10/05/2024 6:45 PM [facility] Basophils Relative 0.7 % LAB HEMETOLOGY METHOD 10/05/2024 6:45 PM [facility] Immature Granulocytes Relative 0.9 % LAB HEMETOLOGY METHOD 10/05/2024 6:45 PM [facility] Neutrophils Absolute 3.45 1.50 - 7.00 K/mcL LAB HEMETOLOGY METHOD 10/05/2024 6:45 PM [facility] Lymphocytes Absolute 1.43 1.00 - 5.00 K/mcL LAB HEMETOLOGY METHOD 10/05/2024 6:45 PM [facility] Monocytes Absolute 0.58 0.20 - 1.00 K/mcL LAB HEMETOLOGY METHOD 10/05/2024 6:45 PM [facility] Eosinophils Absolute 0.18 0.00 - 0.50 K/mcL LAB HEMETOLOGY METHOD 10/05/2024 6:45 PM [facility] Basophils Absolute 0.04 0.00 - 0.20 K/mcL LAB HEMETOLOGY METHOD 10/05/2024 6:45 PM [facility] Immature Granulocytes Absolute 0.05(H) 0.00 - 0.03 K/mcL LAB HEMETOLOGY METHOD 10/05/2024 6:45 PM [facility] Blood Venous blood specimen / Unknown Venipuncture / Unknown 10/05/2024 4:34 PM EDT 10/05/2024 4:34 PM EDT us Trudy Jackson MD LAB BLOOD ORDERABLES Final Res ult [facility] [address] [place] [address], * (ABNORMAL) Comprehensive metabolic panel (10/05/2024 4:34 PM EDT) Sodium 140 133 - 145 mmol/L LAB CHEMISTRY METHOD 10/05/2024 7:20 PM [facility] Potassium 4.0 3.5 - 5.5 mmol/L LAB CHEMISTRY METHOD 10/05/2024 7:20 PM [facility] Chloride 105 96 - 110 mmol/L LAB CHEMISTRY METHOD 10/05/2024 7:20 PM [facility] CO2 28 21 - 32 mmol/L LAB CHEMISTRY METHOD 10/05/2024 7:20 PM [facility] Anion Gap 7 3 - 11 LAB CHEMISTRY METHOD 10/05/2024 7:20 PM [facility] Glucose 101(H) 70 - 100 mg/dL LAB CHEMISTRY METHOD 10/05/2024 7:20 PM [facility] BUN 16 5 - 25 mg/dL LAB CHEMISTRY METHOD 10/05/2024 7:20 PM [facility] Creatinine 0.97 0.50 - 1.10 mg/dL LAB CHEMISTRY METHOD 10/05/2024 7:20 PM [facility] eGFR 60 >=60 mL/min/1. 73m2 LAB CHEMISTRY METHOD 10/05/2024 7:20 PM [facility] Comment:Calculation based on the Chronic Kidney Disease Epidemiology Collaboration (CKD-EPI) equation refit without adjustment for race. BUN/Creatinine Ratio 16.5 LAB CHEMISTRY METHOD 10/05/2024 7:[address] [facility] Calcium 9.1 8.5 - 10.5 mg/dL LAB CHEMISTRY METHOD 10/05/2024 7:20 PM [facility] AST (SGOT) 22 10 - 42 unit/L LAB CHEMISTRY METHOD 10/05/2024 7:20 PM [facility] ALT (SGPT) 43 10 - 60 unit/L LAB CHEMISTRY METHOD 10/05/2024 7:20 PM [facility] Alkaline Phosphatase 45 42 - 121 unit/L LAB CHEMISTRY METHOD 10/05/2024 7:20 PM [facility] Total Protein 7.1 6.0 - 8.0 g/dL LAB CHEMISTRY METHOD 10/05/2024 7:20 PM [facility] Albumin 3.8 3.2 - 5.0 g/dL LAB CHEMISTRY METHOD 10/05/2024 7:20 PM [facility] Total Bilirubin 0.9 0.0 - 1.4 mg/dL LAB CHEMISTRY METHOD 10/05/2024 7:20 PM [facility] Blood Venous blood specimen / Unknown Venipuncture / Unknown 10/05/2024 4:34 PM EDT 10/05/2024 4:34 PM EDT Trudy Jackson MD LAB BLOOD ORDERABLES Final Res ult [facility] [address] [place] [address], * Falls Risk Assessment (01/21/2024) Falls Risk Assessment Abstracted us Historical Provider HEALTH MAINTENANCE Final Result * Depression Screening (01/21/2024) Depression Screening Abstracted Historical Provider HEALTH MAINTENANCE Final Result * (ABNORMAL) Lipid panel (01/21/2024) LDL/HDL Ratio 3 0 - 4 Triglycerides 167(A) 0 - 150 mg/dL Cholesterol 156 0 - 200 mg/dL HDL 61 >=40 mg/dL LDL Cholesterol 62 0 - 100 mg/dL Blood Venous blood specimen / Unknown Historical Provider LAB BLOOD ORDERABLES [place] l Result * DXA BONE DENSITY STUDY 1+ SITS AXIAL SKEL (12/05/2021 2:36 PM EDT) Anatomical Region Laterality Modality Bone Densitometr y 12/22/2020 9:52 AM EDT Narrative 12/05/2021 5:41 PM EDT BONE DENSITY Lumbar Spine T-score is +0.6 (SD relative to 20-29 y/o adult) Z-score is +3.1 (SD relative to age matched peers) This is normal by criteria defined by the WHO. Left Hip T-score is +0.2 Z-score is +2.3 This is normal by criteria defined by the WHO. Comparison exam(s): significant increase in bone density of lumbar spine when compared to most recent bone density examination Confidence level is +/-95%. Impression: Based on the World Health Organization criteria, Juliane Velázquez should be classified as having normal bone density. [facility] Department of Internal Medicine recommends using [...] on the World Health Organization criteria, Juliane Velázquez should beclassified as having normal bone density. [facility] Department of Internal Medicine recommendsusing National [...] of fracture risk by [employer]. [place] [facility] [place]ED[place] Final Resul t * Hm Hepatitis C Screening (05/01/2016) Hepatitis C Screening Abstracted Historical Provider HEALTH MAINTENANCE Final Result * Colonoscopy (08/10/2015) Colonoscopy No interpreta tion,abstr acted Anatomical Region Laterality Modality Other Historical Provider HEALTH MAINTENANCE Final Result from Last 3 Months or Most Recently Relevant to Health Maintenance Insurance [employer] - [place] MEDICARE ADVANTAGE Care Teams Customer Solutions Teammate Relationship Specialty Start Date End Date Madeline Majano MD [address] [place] [address] [address] [place] [address] PCP - General 05/28/22
== END 2024-12-27 15:32 | disposition home or self-care (01) ==
LOC: HO.HGI 14:24
PROVIDERS: PCP Internal Medicine; Visit Provider Internal Medicine Gastroenterology
DX: R19.7 Diarrhea, unspecified (principal)
CPT/HCPCS: 99213